=== PATIENT | male | born 1955 | race Two or more races ===

== ENCOUNTER 2017-12-17 17:58 | Inpatient (IN) | payer MEDICAID ==
[~2017-12-17] VITALS: Ht 167.6 cm; Wt 77.6 kg
[2017-12-17 18:18] VITALS: BP 106/70
[2017-12-17] MEDS ORDERED: Isovue-300 100ml vial INJ PRN (18:45)
[2017-12-17 19:29] LABS: HEMATOCRIT 34.4 % (42.0-52.0); HEMOGLOBIN 12.7 G/DL (14.2-18.0); MEAN CORPUSCULAR VOLUME 81 FL (80-99); PLATELET COUNT 71 K/UL (150-450); RED BLOOD COUNT 4.24 M/UL (4.70-6.10); RED CELL DISTRIBUTION WIDTH 11.9 % (11.6-14.8); WHITE BLOOD COUNT 7.1 K/UL (4.8-10.8)
[2017-12-17 19:43] LABS: ANION GAP 9 mmol/L (5-15); BLOOD UREA NITROGEN 19 mg/dL (7-18); CALCIUM 8.2 MG/DL (8.5-10.1); CARBON DIOXIDE 25 MMOL/L (21-32); CHLORIDE 92 MMOL/L (98-107); POTASSIUM 3.9 MMOL/L (3.5-5.1); SODIUM 126 MMOL/L (136-145)
[2017-12-17 19:53] LABS: ALANINE AMINOTRANSFERASE 117 U/L (12-78); ALBUMIN/GLOBULIN RATIO 0.8 (1.0-2.7); ALKALINE PHOSPHATASE 127 U/L (46-116); ASPARTATE AMINO TRANSFERASE 74 U/L (15-37); BILIRUBIN,TOTAL 1.5 MG/DL (0.2-1.0); CKMB < 0.5 NG/ML (0.0-3.6); CREATINE KINASE 124 U/L (26-308)
[2017-12-17 20:03] LABS: BILIRUBIN,DIRECT 0.4 MG/DL (0.0-0.3)
--- NOTE | 2017-12-17 21:26 | Emergency Room Report ---
History of Present Illness General Chief Complaint: Abdominal Pain Source: Patient Present Illness HPI Patient is a 62-year-old male presented after increased abdominal pain the epigastric area. Patient had reported onset of symptoms approximately one week ago. He reports having some episodes of fever and chills. The patient reports having increased epigastric discomfort. He reports having some increased watery stools. He denies any fever. He reports reports having diffuse body aches.The patient recent travel from [place]. Patient had not been having any leg pain or swelling. Patient was noted to have the previous been told he had some abnormalities on his EKG. Allergies: Coded Allergies: No Known Allergies (Unverified , 12/17/17) Patient History Past Medical History: see triage record Reviewed Nursing Documentation: PMH: Agreed; PSxH: Agreed Nursing Documentation-PMH Past Medical History: No History, Except For Hx Hypertension: Yes Review of Systems All Other Systems: negative except mentioned in HPI Physical Exam Vital Signs Date Time Temp Pulse Resp B/P (MAP) Pulse Ox O2 Delivery O2 Flow Rate FiO2 12/17/17 18:08 99.1 90 18 106/70 95 Room Air 99.1 Sp02 EP Interpretation: reviewed, normal General Appearance: normal inspection, well appearing, alert, GCS 15, Chronically Ill Head: atraumatic ENT: normal ENT inspection, hearing grossly normal, normal voice Neck: normal inspection, full range of motion, supple, no bony tend Respiratory: normal inspection, lungs clear, normal breath sounds, no respiratory distress, no retraction, no wheezing Cardiovascular #1: no edema, tachycardia Gastrointestinal: normal inspection, normal bowel sounds, soft, no guarding, no hernia, tenderness Genitourinary: no CVA tenderness Musculoskeletal: normal inspection, back normal, normal range of motion Neurologic: normal inspection, alert, oriented x3, responsive, switchboard inspector III-XII nml as tested, motor strength/tone normal, speech normal Psychiatric: normal inspection, judgement/insight normal, mood/affect normal Skin: normal inspection, normal color, no rash Medical Decision Making Diagnostic Impression: Primary Impression: Abdominal pain Additional Impressions: Hyponatremia Abnormal liver function test LVH (left ventricular hypertrophy) ER Course Patient presented for abdominal pain. Differential diagnoses included ischemic bowel, appendicitis, perforated viscus, abdominal aortic aneurysm, inferior myocardial infarction, viral gastroenteritis Because of complexity of patient's case laboratory testing and imaging studies were ordered. The laboratory testing was notable for hyponatremia as well as elevated BNP. Patient given IV fluids.Patient was started on IV EKG interpreted by me showed normal sinus rhythm with a rate of 89 with left ventricular hypertrophy and anterolateral T-wave inversion. CT abdomen pelvis read by radiology showed no acute abnormality.Dr. Juan Manuel Richards was contacted for inpatient management. Labs Test 12/17/17 19:05 White Blood Count 7.1 K/UL (4.8-10.8) Red Blood Count 4.24 M/UL (4.70-6.10) Hemoglobin 12.7 G/DL (14.2-18.0) Hematocrit 34.4 % (42.0-52.0) Mean Corpuscular Volume 81 FL (80-99) Mean Corpuscular Hemoglobin 29.9 PG (27.0-31.0) Mean Corpuscular Hemoglobin Concent 36.8 G/DL (32.0-36.0) Red Cell Distribution Width 11.9 % (11.6-14.8) Platelet Count 71 K/UL (150-450) Mean Platelet Volume 10.9 FL (6.5-10.1) Neutrophils (%) (Auto) % (45.0-75.0) Lymphocytes (%) (Auto) % (20.0-45.0) Monocytes (%) (Auto) % (1.0-10.0) Eosinophils (%) (Auto) % (0.0-3.0) Basophils (%) (Auto) % (0.0-2.0) Differential Total Cells Counted 100 Neutrophils % (Manual) 85 % (45-75) Lymphocytes % (Manual) 9 % (20-45) Monocytes % (Manual) 6 % (1-10) Eosinophils % (Manual) 0 % (0-3) Basophils % (Manual) 0 % (0-2) Band Neutrophils 0 % (0-8) Reactive Lymphocytes Occasional Platelet Estimate Decreased Giant Platelets Occasional Hypochromasia 1+ Anisocytosis Occasional Sodium Level 126 MMOL/L (136-145) Potassium Level 3.9 MMOL/L (3.5-5.1) Chloride Level 92 MMOL/L (98-107) Carbon Dioxide Level 25 MMOL/L (21-32) Anion Gap 9 mmol/L (5-15) Blood Urea Nitrogen 19 mg/dL (7-18) Creatinine 1.0 MG/DL (0.55-1.30) Estimat Glomerular Filtration Rate > 60 mL/min (>60) Glucose Level 136 MG/DL (74-106) Lactic Acid Level 0.90 mmol/L (0.4-2.0) Calcium Level 8.2 MG/DL (8.5-10.1) Phosphorus Level 2.0 MG/DL (2.5-4.9) Magnesium Level 2.1 MG/DL (1.8-2.4) Total Bilirubin 1.5 MG/DL (0.2-1.0) Direct Bilirubin 0.4 MG/DL (0.0-0.3) Aspartate Amino Transf (AST/SGOT) 74 U/L (15-37) Alanine Aminotransferase (ALT/SGPT) 117 U/L (12-78) Alkaline Phosphatase 127 U/L (46-116) Total Creatine Kinase 124 U/L (26-308) Creatine Kinase MB < 0.5 NG/ML (0.0-3.6) Creatine Kinase MB Relative Index 0.4 Troponin I 0.005 ng/mL (0.000-0.056) Pro-B-Type Natriuretic Peptide 925 pg/mL (0-125) Total Protein 6.6 G/DL (6.4-8.2) Albumin 3.0 G/DL (3.4-5.0) Globulin 3.6 g/dL Albumin/Globulin Ratio 0.8 (1.0-2.7) EKG Diagnostic Results Rate: tachycardiac Rhythm: NSR ST Segments: no acute changes Last Vital Signs Date Time Temp Pulse Resp B/P (MAP) Pulse Ox O2 Delivery O2 Flow Rate FiO2 12/17/17 18:18 99.1 90 18 106/70 95 Room Air 99.1 Status: unchanged Disposition: ADMITTED INPATIENT Condition: Serious Referrals: NON PHYSICIAN (PCP) Ariel Bustillo MD Dec 17, 2017 21:26
[2017-12-17] MEDS ORDERED: D5 1/2NS 1,000 ML IV SCH (21:27)
[2017-12-17] MEDS ORDERED: Miralax 17gm pkt ORAL PRN (21:30)
[2017-12-17] MEDS ORDERED: Promethazine HCl 12.5 MG in NS 55 ML IV PRN (21:30)
[2017-12-17] MEDS ORDERED: LORazepam Inj 2mg/ml 1ml IV PRN (21:30)
[2017-12-17] MEDS ORDERED: Nitroglycerin Subl 0.4mg tab SL PRN (21:30)
[2017-12-17] MEDS ORDERED: Metoclopramide 10mg/2ml Inj IVP PRN (21:30)
[2017-12-17] MEDS ORDERED: Promethazine HCl 25 MG in NS 55 ML IV PRN (21:30)
[2017-12-17] MEDS ORDERED: Mylanta II UD 30ml ORAL PRN (21:30)
[2017-12-17] MEDS ORDERED: Morphine Sulfate 2mg/ml Inj IVP PRN (21:30)
[2017-12-17 22:45] VITALS: BP 151/82
[2017-12-18] VITALS: BP 125/68
[2017-12-18 04:00] VITALS: BP 118/70
[2017-12-18 06:38] LABS: APPEARANCE,URINE CLEAR; BILIRUBIN, URINE NEGATIVE (NEGATIVE); GLUCOSE, URINE (UA) NEGATIVE (NEGATIVE); KETONES,URINE 1+ (NEGATIVE); LEUKOCYTE ESTERASE ,URINE NEGATIVE (NEGATIVE); NITRITE,URINE NEGATIVE (NEGATIVE); PH,URINE 6 (4.5-8.0); PROTEIN,URINE 2+ (NEGATIVE); UROBILINOGEN,URINE NORMAL MG/DL (0.0-1.0)
[2017-12-18 07:05] LABS: COLOR,URINE YELLOW
[2017-12-18] MEDS: D5NS 1,000 ML IV SCH ×2 (07:15→20:35)
[2017-12-18 07:18] LABS: ALANINE AMINOTRANSFERASE 115 U/L (12-78); ALBUMIN 2.6 G/DL (3.4-5.0); ALBUMIN/GLOBULIN RATIO 0.7 (1.0-2.7); ALKALINE PHOSPHATASE 120 U/L (46-116); AMYLASE 70 U/L (25-115); ANION GAP 9 mmol/L (5-15); ASPARTATE AMINO TRANSFERASE 87 U/L (15-37); BILIRUBIN,TOTAL 1.1 MG/DL (0.2-1.0); BLOOD UREA NITROGEN 15 mg/dL (7-18); CALCIUM 7.9 MG/DL (8.5-10.1); CARBON DIOXIDE 21 MMOL/L (21-32); CHLORIDE 96 MMOL/L (98-107); POTASSIUM 3.7 MMOL/L (3.5-5.1); SODIUM 126 MMOL/L (136-145)
[2017-12-18 07:20] LABS: HEMOGLOBIN 12.4 G/DL (14.2-18.0); MEAN CORPUSCULAR VOLUME 82 FL (80-99); PLATELET COUNT 79 K/UL (150-450); RED BLOOD COUNT 4.38 M/UL (4.70-6.10); RED CELL DISTRIBUTION WIDTH 11.8 % (11.6-14.8); WHITE BLOOD COUNT 7.3 K/UL (4.8-10.8)
[2017-12-18 07:25] LABS: BILIRUBIN,DIRECT 0.2 MG/DL (0.0-0.3)
[2017-12-18 08:00] VITALS: BP 131/79
[2017-12-18] MEDS: Pantoprazole Inj IV SCH (08:22)
[2017-12-18] MEDS ORDERED: Heparin 5000 units/ml inj SUBQ SCH (09:00)
--- NOTE | 2017-12-18 10:05 | Diagnostic Imaging Report ---
Indication: Abdominal pain Technique: CT of the abdomen and pelvis utilizing automated exposure control with intravenous contrast. Venous scanning performed. Axial, sagittal and coronal reformats presented. CT dose: Total DLP 825 mGycm; CTDI vol 15.4 mGy Comparison: None Findings: Dependent atelectasis noted in the lung bases. Heart size within normal limits. No pericardial effusion. Likely aortic valvular calcifications partially visualized. No pericardial effusion. Liver normal in size and contour. No focal hepatic mass lesion appreciated on this single phase exam. Portal veins appear patent. Gallbladder is unremarkable in appearance. No CT evident gallstones or pericholecystic inflammatory change. Spleen, adrenal glands and pancreas unremarkable. Kidneys enhance symmetrically. There are small well-circumscribed low-attenuation lesions in the bilateral kidneys, too small to fully characterize but likely simple renal cysts. There is a possible tiny nonobstructing stone in the midpole the left kidney (series 5 image #29). No evidence of hydronephrosis bilaterally. Bladder unremarkable. Prostate is mildly enlarged with central calcifications. There is no free intraperitoneal air or fluid. No evidence of bowel obstruction. Appendix is normal. Abdominal aorta normal in caliber with mild scattered atherosclerotic calcifications. There are mild degenerative changes of the spine. No acute osseous abnormality identified. IMPRESSION: Questionable punctate nonobstructing stone in the midpole the left kidney. No evidence of hydronephrosis bilaterally. Mild prostatomegaly. The CT scanner at [facility] is accredited by the [employer] and the scans are performed using protocols designed to limit radiation exposure to as low as reasonably achievable to attain images of sufficient resolution adequate for diagnostic evaluation.
--- NOTE | 2017-12-18 10:45 | GI Initial Consult Note ---
History of Present Illness General Date patient seen: Dec 18, 2017 Time patient seen: 10:40 Reason for Hospitalization: Abdominal Pain Referring physician: MILTON RIDDLE Reason for Consultation: ABDOMINAL PAIN Present Illness HPI Patient is a 62-year-old male presented after increased abdominal pain the epigastric area. Patient had reported onset of symptoms approximately one week ago. He reports having some episodes of fever and chills. The patient reports having increased epigastric discomfort. He reports having some increased watery stools. He denies any fever. He reports reports having diffuse body aches.The patient recent travel from [place]. Patient had not been having any leg pain or swelling. Patient was noted to have the previous been told he had some abnormalities on his EKG. GI consulted for abdominal pain. Pt seen, awake A&Ox4 diaphoretic currently running fever 102.4 . Pt stated he earlier had severe epigastric pain for 1 week, however the pain has resolved at this time. No tenderness to palpation. Labs reviewed show transaminitis with elevated alkaline phosphatase and mild anemia. The patient has no history of endoscopy or colonoscopy. Abdominal US is currently pending. Med list reviewed/reconciled: Yes Allergies: Coded Allergies: No Known Allergies (Unverified , 12/17/17) Patient History PMH Narrative Past Medical History: see triage record Reviewed Nursing Documentation: PMH: Agreed; PSxH: Agreed Nursing Documentation-PMH Past Medical History: No History, Except For Hx Hypertension: Yes Social History: Denies: smoking, alcohol use, drug use, other Review of Systems All Other Systems: negative except mentioned in HPI Physical Exam Vital Signs Date Time Temp Pulse Resp B/P (MAP) Pulse Ox O2 Delivery O2 Flow Rate FiO2 12/17/17 18:08 99.1 90 18 106/70 95 Room Air 99.1 Sp02 EP Interpretation: reviewed, normal Labs Laboratory Tests Test 12/17/17 19:05 12/18/17 05:50 12/18/17 06:00 White Blood Count 7.1 K/UL (4.8-10.8) 7.3 K/UL (4.8-10.8) Red Blood Count 4.24 M/UL (4.70-6.10) L 4.38 M/UL (4.70-6.10) L Hemoglobin 12.7 G/DL (14.2-18.0) L 12.4 G/DL (14.2-18.0) L Hematocrit 34.4 % (42.0-52.0) L 36.0 % (42.0-52.0) L Mean Corpuscular Volume 81 FL (80-99) 82 FL (80-99) Mean Corpuscular Hemoglobin 29.9 PG (27.0-31.0) 28.4 PG (27.0-31.0) Mean Corpuscular Hemoglobin Concent 36.8 G/DL (32.0-36.0) H 34.5 G/DL (32.0-36.0) Red Cell Distribution Width 11.9 % (11.6-14.8) 11.8 % (11.6-14.8) Platelet Count 71 K/UL (150-450) L 79 K/UL (150-450) L Mean Platelet Volume 10.9 FL (6.5-10.1) H 8.3 FL (6.5-10.1) Neutrophils (%) (Auto) % (45.0-75.0) % (45.0-75.0) Lymphocytes (%) (Auto) % (20.0-45.0) % (20.0-45.0) Monocytes (%) (Auto) % (1.0-10.0) % (1.0-10.0) Eosinophils (%) (Auto) % (0.0-3.0) % (0.0-3.0) Basophils (%) (Auto) % (0.0-2.0) % (0.0-2.0) Differential Total Cells Counted 100 Neutrophils % (Manual) 85 % (45-75) H Pending Lymphocytes % (Manual) 9 % (20-45) L Pending Monocytes % (Manual) 6 % (1-10) Eosinophils % (Manual) 0 % (0-3) Basophils % (Manual) 0 % (0-2) Band Neutrophils 0 % (0-8) Reactive Lymphocytes Occasional Platelet Estimate Decreased L Pending Platelet Morphology Pending Giant Platelets Occasional Hypochromasia 1+ Anisocytosis Occasional Sodium Level 126 MMOL/L (136-145) L 126 MMOL/L (136-145) L Potassium Level 3.9 MMOL/L (3.5-5.1) 3.7 MMOL/L (3.5-5.1) Chloride Level 92 MMOL/L (98-107) L 96 MMOL/L (98-107) L Carbon Dioxide Level 25 MMOL/L (21-32) 21 MMOL/L (21-32) Anion Gap 9 mmol/L (5-15) 9 mmol/L (5-15) Blood Urea Nitrogen 19 mg/dL (7-18) H 15 mg/dL (7-18) Creatinine 1.0 MG/DL (0.55-1.30) 1.0 MG/DL (0.55-1.30) Estimat Glomerular Filtration Rate > 60 mL/min (>60) > 60 mL/min (>60) Glucose Level 136 MG/DL (74-106) H 138 MG/DL (74-106) H Lactic Acid Level 0.90 mmol/L (0.4-2.0) Calcium Level 8.2 MG/DL (8.5-10.1) L 7.9 MG/DL (8.5-10.1) L Phosphorus Level 2.0 MG/DL (2.5-4.9) L Magnesium Level 2.1 MG/DL (1.8-2.4) Total Bilirubin 1.5 MG/DL (0.2-1.0) H 1.1 MG/DL (0.2-1.0) H Direct Bilirubin 0.4 MG/DL (0.0-0.3) H 0.2 MG/DL (0.0-0.3) Aspartate Amino Transf (AST/SGOT) 74 U/L (15-37) H 87 U/L (15-37) H Alanine Aminotransferase (ALT/SGPT) 117 U/L (12-78) H 115 U/L (12-78) H Alkaline Phosphatase 127 U/L (46-116) H 120 U/L (46-116) H Total Creatine Kinase 124 U/L (26-308) Creatine Kinase MB < 0.5 NG/ML (0.0-3.6) Creatine Kinase MB Relative Index 0.4 Troponin I 0.005 ng/mL (0.000-0.056) Pro-B-Type Natriuretic Peptide 925 pg/mL (0-125) H Total Protein 6.6 G/DL (6.4-8.2) 6.1 G/DL (6.4-8.2) L Albumin 3.0 G/DL (3.4-5.0) L 2.6 G/DL (3.4-5.0) L Globulin 3.6 g/dL 3.5 g/dL Albumin/Globulin Ratio 0.8 (1.0-2.7) L 0.7 (1.0-2.7) L Activated Partial Thromboplast Time 37 SEC (23-33) H Amylase Level 70 U/L (25-115) Lipase 299 U/L (73-393) Urine Color Yellow Urine Appearance Clear Urine pH 6 (4.5-8.0) Urine Specific [place] 1.010 (1.005-1.035) Urine Protein 2+ (NEGATIVE) H Urine Glucose (UA) Negative (NEGATIVE) Urine Ketones 1+ (NEGATIVE) H Urine Blood 3+ (NEGATIVE) H Urine Nitrite Negative (NEGATIVE) Urine Bilirubin Negative (NEGATIVE) Urine Urobilinogen Normal MG/DL (0.0-1.0) Urine Leukocyte Esterase Negative (NEGATIVE) Urine RBC 2-4 /HPF (0 - 0) H Urine WBC 0-2 /HPF (0 - 0) Urine Squamous Epithelial Cells Occasional /LPF Urine Bacteria Occasional /HPF (NONE) General Appearance: well appearing, no apparent distress, alert Head: normocephalic EENT: PERRL/EOMI, normal ENT inspection Neck: supple Respiratory: normal breath sounds, no respiratory distress Cardiovascular: normal rate Gastrointestinal: normal inspection, non tender, soft, normal bowel sounds, non -distended Rectal: deferred Genitourinary: deferred Musculoskeletal: normal inspection, back normal Neurologic: normal inspection, alert, oriented x3, responsive Psychiatric: normal inspection, judgement/insight normal, memory normal Skin: normal inspection, normal color, no rash, warm/dry, palpation normal, well hydrated Lymphatic: normal inspection, no adenopathy Current Medications Current Medications Medications (Trade) Dose Ordered Sig/Jasmine Route PRN Reason Start Time Stop Time Status Last Admin Dose Admin Acetaminophen (Tylenol) 650 mg Q4H PRN ORAL fever 12/17/17 21:30 01/16/18 21:29 12/18/17 08:23 Al Hydroxide/Mg Hydroxide (Mylanta II) 30 ml Q6H PRN ORAL dyspepsia 12/17/17 21:30 01/16/18 21:29 Dextrose (Dextrose 50%) STAT PRN IV Hypoglycemia 12/17/17 21:30 01/16/18 21:29 Dextrose/Sodium Chloride 1,000 ml @ 75 mls/hr [id number] IV 12/18/17 07:15 01/17/18 07:14 12/18/17 07:15 Diphenhydramine HCl (Benadryl) 25 mg Q6H PRN ORAL Itching/Pruritis 12/17/17 21:30 01/16/18 21:29 Iopamidol (Isovue-300 100ml) 100 ml NOW PRN INJ Radiology Procedure 12/17/17 18:45 Lorazepam (Ativan 2mg/ml 1ml) 1 mg Q4H PRN IV agitation 12/17/17 21:30 12/24/17 21:29 Metoclopramide HCl (Reglan) 10 mg Q6H PRN IVP SEVERE NAUSEA 12/17/17 21:30 01/16/18 21:29 Morphine Sulfate (Morphine Sulfate) 2 mg Q4H PRN IVP severe Pain (Pain Scale 7-10) 12/17/17 21:30 12/24/17 21:29 Nitroglycerin (Ntg) 0.4 mg Q5M X 3 DOSES PRN SL Prn Chest Pain 12/17/17 21:30 01/16/18 21:29 Ondansetron HCl (Zofran) 4 mg Q6H PRN IVP Nausea & Vomiting 12/17/17 21:30 01/16/18 21:29 12/17/17 23:23 Pantoprazole (Protonix) 40 mg DAILY IV 12/18/17 09:00 01/17/18 08:59 12/18/17 08:22 Polyethylene Glycol (Miralax) 17 gm HSPRN PRN ORAL Constipation 12/17/17 21:30 01/16/18 21:29 Promethazine HCl 12.5 mg/Sodium Chloride 55.5 ml @ 110 mls/hr Q6H PRN IV Refractory N/V 12/17/17 21:30 01/16/18 21:29 Promethazine HCl 25 mg/Sodium Chloride 56 ml @ 110 mls/hr Q6H PRN IV Refractory N/V 12/17/17 21:30 01/16/18 21:29 Temazepam (Restoril) 15 mg HSPRN PRN ORAL Insomnia 12/17/17 21:30 12/24/17 21:29 12/17/17 23:24 GI: Plan Problems: (1) Abdominal pain (2) Hyponatremia (3) Abnormal liver function test (4) Abdominal distention Plan CT AP reviewed. start patient on PPI, will consider endoscopy if patient continues to have persistent pain madrigal culture fu abdominal US anemia work up OB stool r/o GI bleed monitor H&H, prn transfusions bowel regime fu labs, hepatitis panel outpatient colonoscopy Discussed with Dr. Prabhakar. Thank you for this patient referral, we will follow. The patient was seen and examined at bedside and all new and available data was reviewed in the patients chart. I agree with the above findings, impression and plan. (Patient seen earlier today. Signature stamp does not reflect patient encounter time.). - MD Nat[facility] INSURANCE CLAIMS REPRESENTATIVE Dec 18, 2017 10:45
[2017-12-18 12:00] VITALS: BP 119/70
--- NOTE | 2017-12-18 12:38 | Consultation ---
History of Present Illness General Chief Complaint: Abdominal Pain Referring physician: MILTON RIDDLE Reason for Consultation: ABDOMINAL PAIN Present Illness HPI 62-year-old male presented after increased abdominal pain the epigastric area for one week with episodes of fever and chills. The patient reports having increased epigastric discomfort. He reports having some increased watery stools. He was tachycardic and febrile. He is admitted to telemetry for further work up. Allergies: Coded Allergies: No Known Allergies (Unverified , 12/17/17) Patient History Healthcare decision maker SELF Resuscitation status Full Code Advanced Directive on File No Review of Systems Constitutional: Reports: no symptoms, malaise, weakness Gastrointestinal: Reports: abdominal pain, constipation Physical Exam General Appearance: WD/WN Lines, tubes and drains: peripheral HEENT: normocephalic, atraumatic Neck: non-tender, normal alignment Respiratory/Chest: chest wall non-tender, lungs clear Breasts: no masses Cardiovascular/Chest: normal peripheral pulses Abdomen: normal bowel sounds, non tender Genitourinary/Rectal: normal genital exam Extremities: non-tender Last 24 Hour Vital Signs Date Time Temp Pulse Resp B/P (MAP) Pulse Ox O2 Delivery O2 Flow Rate FiO2 12/18/17 09:00 Room Air 12/18/17 08:53 102.4 12/18/17 08:23 101.8 12/18/17 08:00 115 12/18/17 04:00 98.8 99 25 118/70 (86) 96 98.8 12/18/17 04:00 91 12/18/17 01:46 100.2 24 97 100.2 12/18/17 00:00 101.0 122 27 125/68 (87) 96 101.0 12/18/17 00:00 122 12/17/17 23:24 101.6 12/17/17 22:46 Room Air 12/17/17 22:45 214.9 115 25 126/73 95 Room Air 12/17/17 22:45 101.6 121 25 151/82 (105) 95 101.6 12/17/17 22:40 122 12/17/17 18:18 99.1 90 18 106/70 95 Room Air 99.1 12/17/17 18:08 99.1 90 18 106/70 95 Room Air 99.1 Intake and Output 12/17/17 12/18/17 19:00 07:00 Intake Total 421 ml Output Total 0 ml Balance 0 ml 421 ml Intake IV Total 421 ml Output Urine Total 0 ml Laboratory Tests Test 12/17/17 19:05 12/18/17 05:50 12/18/17 06:00 12/18/17 11:30 White Blood Count 7.1 K/UL (4.8-10.8) 7.3 K/UL (4.8-10.8) Red Blood Count 4.24 M/UL (4.70-6.10) L 4.38 M/UL (4.70-6.10) L Hemoglobin 12.7 G/DL (14.2-18.0) L 12.4 G/DL (14.2-18.0) L Hematocrit 34.4 % (42.0-52.0) L 36.0 % (42.0-52.0) L Mean Corpuscular Volume 81 FL (80-99) 82 FL (80-99) Mean Corpuscular Hemoglobin 29.9 PG (27.0-31.0) 28.4 PG (27.0-31.0) Mean Corpuscular Hemoglobin Concent 36.8 G/DL (32.0-36.0) H 34.5 G/DL (32.0-36.0) Red Cell Distribution Width 11.9 % (11.6-14.8) 11.8 % (11.6-14.8) Platelet Count 71 K/UL (150-450) L 79 K/UL (150-450) L Mean Platelet Volume 10.9 FL (6.5-10.1) H 8.3 FL (6.5-10.1) Neutrophils (%) (Auto) % (45.0-75.0) % (45.0-75.0) Lymphocytes (%) (Auto) % (20.0-45.0) % (20.0-45.0) Monocytes (%) (Auto) % (1.0-10.0) % (1.0-10.0) Eosinophils (%) (Auto) % (0.0-3.0) % (0.0-3.0) Basophils (%) (Auto) % (0.0-2.0) % (0.0-2.0) Differential Total Cells Counted 100 Neutrophils % (Manual) 85 % (45-75) H Pending Lymphocytes % (Manual) 9 % (20-45) L Pending Monocytes % (Manual) 6 % (1-10) Eosinophils % (Manual) 0 % (0-3) Basophils % (Manual) 0 % (0-2) Band Neutrophils 0 % (0-8) Reactive Lymphocytes Occasional Platelet Estimate Decreased L Pending Platelet Morphology Pending Giant Platelets Occasional Hypochromasia 1+ Anisocytosis Occasional Sodium Level 126 MMOL/L (136-145) L 126 MMOL/L (136-145) L Potassium Level 3.9 MMOL/L (3.5-5.1) 3.7 MMOL/L (3.5-5.1) Chloride Level 92 MMOL/L (98-107) L 96 MMOL/L (98-107) L Carbon Dioxide Level 25 MMOL/L (21-32) 21 MMOL/L (21-32) Anion Gap 9 mmol/L (5-15) 9 mmol/L (5-15) Blood Urea Nitrogen 19 mg/dL (7-18) H 15 mg/dL (7-18) Creatinine 1.0 MG/DL (0.55-1.30) 1.0 MG/DL (0.55-1.30) Estimat Glomerular Filtration Rate > 60 mL/min (>60) > 60 mL/min (>60) Glucose Level 136 MG/DL (74-106) H 138 MG/DL (74-106) H Lactic Acid Level 0.90 mmol/L (0.4-2.0) Calcium Level 8.2 MG/DL (8.5-10.1) L 7.9 MG/DL (8.5-10.1) L Phosphorus Level 2.0 MG/DL (2.5-4.9) L Magnesium Level 2.1 MG/DL (1.8-2.4) Total Bilirubin 1.5 MG/DL (0.2-1.0) H 1.1 MG/DL (0.2-1.0) H Direct Bilirubin 0.4 MG/DL (0.0-0.3) H 0.2 MG/DL (0.0-0.3) Aspartate Amino Transf (AST/SGOT) 74 U/L (15-37) H 87 U/L (15-37) H Alanine Aminotransferase (ALT/SGPT) 117 U/L (12-78) H 115 U/L (12-78) H Alkaline Phosphatase 127 U/L (46-116) H 120 U/L (46-116) H Total Creatine Kinase 124 U/L (26-308) Creatine Kinase MB < 0.5 NG/ML (0.0-3.6) Creatine Kinase MB Relative Index 0.4 Troponin I 0.005 ng/mL (0.000-0.056) Pro-B-Type Natriuretic Peptide 925 pg/mL (0-125) H Total Protein 6.6 G/DL (6.4-8.2) 6.1 G/DL (6.4-8.2) L Albumin 3.0 G/DL (3.4-5.0) L 2.6 G/DL (3.4-5.0) L Globulin 3.6 g/dL 3.5 g/dL Albumin/Globulin Ratio 0.8 (1.0-2.7) L 0.7 (1.0-2.7) L Activated Partial Thromboplast Time 37 SEC (23-33) H Amylase Level 70 U/L (25-115) Lipase 299 U/L (73-393) Urine Color Yellow Urine Appearance Clear Urine pH 6 (4.5-8.0) Urine Specific [place] 1.010 (1.005-1.035) Urine Protein 2+ (NEGATIVE) H Urine Glucose (UA) Negative (NEGATIVE) Urine Ketones 1+ (NEGATIVE) H Urine Blood 3+ (NEGATIVE) H Urine Nitrite Negative (NEGATIVE) Urine Bilirubin Negative (NEGATIVE) Urine Urobilinogen Normal MG/DL (0.0-1.0) Urine Leukocyte Esterase Negative (NEGATIVE) Urine RBC 2-4 /HPF (0 - 0) H Urine WBC 0-2 /HPF (0 - 0) Urine Squamous Epithelial Cells Occasional /LPF Urine Bacteria Occasional /HPF (NONE) Hepatitis A IgM Antibody Pending Hepatitis B Surface Antigen Pending Hepatitis B Core IgM Antibody Pending Hepatitis C Antibody Pending Height (Feet): 5 Height (Inches): 6.00 Weight (Pounds): 176 Medications Current Medications Medications (Trade) Dose Ordered Sig/Jasmine Route PRN Reason Start Time Stop Time Status Last Admin Dose Admin Acetaminophen (Tylenol) 650 mg Q4H PRN ORAL fever 12/17/17 21:30 01/16/18 21:29 12/18/17 08:23 Al Hydroxide/Mg Hydroxide (Mylanta II) 30 ml Q6H PRN ORAL dyspepsia 12/17/17 21:30 01/16/18 21:29 Dextrose (Dextrose 50%) STAT PRN IV Hypoglycemia 12/17/17 21:30 01/16/18 21:29 Dextrose/Sodium Chloride 1,000 ml @ 75 mls/hr [id number] IV 12/18/17 07:15 01/17/18 07:14 12/18/17 07:15 Diphenhydramine HCl (Benadryl) 25 mg Q6H PRN ORAL Itching/Pruritis 12/17/17 21:30 01/16/18 21:29 Iopamidol (Isovue-300 100ml) 100 ml NOW PRN INJ Radiology Procedure 12/17/17 18:45 Lorazepam (Ativan 2mg/ml 1ml) 1 mg Q4H PRN IV agitation 12/17/17 21:30 12/24/17 21:29 Metoclopramide HCl (Reglan) 10 mg Q6H PRN IVP SEVERE NAUSEA 12/17/17 21:30 01/16/18 21:29 Morphine Sulfate (Morphine Sulfate) 2 mg Q4H PRN IVP severe Pain (Pain Scale 7-10) 12/17/17 21:30 12/24/17 21:29 Nitroglycerin (Ntg) 0.4 mg Q5M X 3 DOSES PRN SL Prn Chest Pain 12/17/17 21:30 01/16/18 21:29 Ondansetron HCl (Zofran) 4 mg Q6H PRN IVP Nausea & Vomiting 12/17/17 21:30 01/16/18 21:29 12/17/17 23:23 Pantoprazole (Protonix) 40 mg DAILY IV 12/18/17 09:00 01/17/18 08:59 12/18/17 08:22 Polyethylene Glycol (Miralax) 17 gm HSPRN PRN ORAL Constipation 12/17/17 21:30 01/16/18 21:29 Promethazine HCl 12.5 mg/Sodium Chloride 55.5 ml @ 110 mls/hr Q6H PRN IV Refractory N/V 12/17/17 21:30 01/16/18 21:29 Promethazine HCl 25 mg/Sodium Chloride 56 ml @ 110 mls/hr Q6H PRN IV Refractory N/V 12/17/17 21:30 01/16/18 21:29 Temazepam (Restoril) 15 mg HSPRN PRN ORAL Insomnia 12/17/17 21:30 12/24/17 21:29 12/17/17 23:24 Assessment/Plan Problem List: (1) Sepsis ICD Codes: A41.9 - Sepsis, unspecified organism SNOMED: 25361495 (2) Intractable diarrhea ICD Codes: R19.7 - Diarrhea, unspecified SNOMED: 040886125 (3) Abdominal pain ICD Codes: R10.9 - Unspecified abdominal pain SNOMED: 94050458 (4) Hyponatremia ICD Codes: E87.1 - Hypo-osmolality and hyponatremia SNOMED: 91405646 Assessment/Plan NPO iv fluids IV abx GI and ID evaluation check electrolytes. Kaushal Goodwin MD Dec 18, 2017 12:38
--- NOTE | 2017-12-18 13:21 | Consultation ---
History of Present Illness General Date patient seen: Dec 18, 2017 Chief Complaint: Abdominal Pain Referring physician: MILTON RIDDLE Reason for Consultation: ABDOMINAL PAIN Present Illness HPI Mr. Knight is a 62 yo male with PMHx of HTN who presented to the ED yesterday with nausea, vomiting, diarrhea and fever. The patient reports that he just returned from a week long trip to [place] where he started to feel sick to his stomach after eating ham and eggs. Other people eat the same food and did not get sick. He has had nausea, intermittent vomiting and diarrhea (watery and about 2-3 / day. No blood). He also has had intermittent fever and chills for the last week. He says that he has associated intermittent BENAVIDES, and his fingers and shins have been hurting as well. Currently he feel a little nauseous and has a headache but no vomiting, had one BM today loose watery but has no hand or sun pain. He a fever of 102 this am. He has no pets, Denies Bug bites, contact with feral cats, dog, opossums, rats and he has no pets of his own. He does not hike or [place]. Lives in [place]. Has not traveled recently other then to [place]. No He of rheumatological problems or cancer. PMHx HTN HDL PSHx None SocHx Retired form construction work - No chemical exposures that he knows of Used to drink EtOH but not heavily Now no E/T/D FamHx No DM Allergies: Coded Allergies: No Known Allergies (Unverified , 12/17/17) Patient History Healthcare decision maker SELF Resuscitation status Full Code Advanced Directive on File No Review of Systems All Other Systems: negative except mentioned in HPI Physical Exam Last 24 Hour Vital Signs Date Time Temp Pulse Resp B/P (MAP) Pulse Ox O2 Delivery O2 Flow Rate FiO2 12/18/17 09:00 Room Air 12/18/17 08:53 102.4 12/18/17 08:23 101.8 12/18/17 08:00 115 12/18/17 04:00 98.8 99 25 118/70 (86) 96 98.8 12/18/17 04:00 91 12/18/17 01:46 100.2 24 97 100.2 12/18/17 00:00 101.0 122 27 125/68 (87) 96 101.0 12/18/17 00:00 122 12/17/17 23:24 101.6 12/17/17 22:46 Room Air 12/17/17 22:45 214.9 115 25 126/73 95 Room Air 12/17/17 22:45 101.6 121 25 151/82 (105) 95 101.6 12/17/17 22:40 122 12/17/17 18:18 99.1 90 18 106/70 95 Room Air 99.1 12/17/17 18:08 99.1 90 18 106/70 95 Room Air 99.1 Intake and Output 12/17/17 12/18/17 19:00 07:00 Intake Total 421 ml Output Total 0 ml Balance 0 ml 421 ml Intake IV Total 421 ml Output Urine Total 0 ml Laboratory Tests Test 12/17/17 19:05 12/18/17 05:50 12/18/17 06:00 12/18/17 11:30 White Blood Count 7.1 K/UL (4.8-10.8) 7.3 K/UL (4.8-10.8) Red Blood Count 4.24 M/UL (4.70-6.10) L 4.38 M/UL (4.70-6.10) L Hemoglobin 12.7 G/DL (14.2-18.0) L 12.4 G/DL (14.2-18.0) L Hematocrit 34.4 % (42.0-52.0) L 36.0 % (42.0-52.0) L Mean Corpuscular Volume 81 FL (80-99) 82 FL (80-99) Mean Corpuscular Hemoglobin 29.9 PG (27.0-31.0) 28.4 PG (27.0-31.0) Mean Corpuscular Hemoglobin Concent 36.8 G/DL (32.0-36.0) H 34.5 G/DL (32.0-36.0) Red Cell Distribution Width 11.9 % (11.6-14.8) 11.8 % (11.6-14.8) Platelet Count 71 K/UL (150-450) L 79 K/UL (150-450) L Mean Platelet Volume 10.9 FL (6.5-10.1) H 8.3 FL (6.5-10.1) Neutrophils (%) (Auto) % (45.0-75.0) % (45.0-75.0) Lymphocytes (%) (Auto) % (20.0-45.0) % (20.0-45.0) Monocytes (%) (Auto) % (1.0-10.0) % (1.0-10.0) Eosinophils (%) (Auto) % (0.0-3.0) % (0.0-3.0) Basophils (%) (Auto) % (0.0-2.0) % (0.0-2.0) Differential Total Cells Counted 100 Neutrophils % (Manual) 85 % (45-75) H Pending Lymphocytes % (Manual) 9 % (20-45) L Pending Monocytes % (Manual) 6 % (1-10) Eosinophils % (Manual) 0 % (0-3) Basophils % (Manual) 0 % (0-2) Band Neutrophils 0 % (0-8) Reactive Lymphocytes Occasional Platelet Estimate Decreased L Pending Platelet Morphology Pending Giant Platelets Occasional Hypochromasia 1+ Anisocytosis Occasional Sodium Level 126 MMOL/L (136-145) L 126 MMOL/L (136-145) L Potassium Level 3.9 MMOL/L (3.5-5.1) 3.7 MMOL/L (3.5-5.1) Chloride Level 92 MMOL/L (98-107) L 96 MMOL/L (98-107) L Carbon Dioxide Level 25 MMOL/L (21-32) 21 MMOL/L (21-32) Anion Gap 9 mmol/L (5-15) 9 mmol/L (5-15) Blood Urea Nitrogen 19 mg/dL (7-18) H 15 mg/dL (7-18) Creatinine 1.0 MG/DL (0.55-1.30) 1.0 MG/DL (0.55-1.30) Estimat Glomerular Filtration Rate > 60 mL/min (>60) > 60 mL/min (>60) Glucose Level 136 MG/DL (74-106) H 138 MG/DL (74-106) H Lactic Acid Level 0.90 mmol/L (0.4-2.0) Calcium Level 8.2 MG/DL (8.5-10.1) L 7.9 MG/DL (8.5-10.1) L Phosphorus Level 2.0 MG/DL (2.5-4.9) L Magnesium Level 2.1 MG/DL (1.8-2.4) Total Bilirubin 1.5 MG/DL (0.2-1.0) H 1.1 MG/DL (0.2-1.0) H Direct Bilirubin 0.4 MG/DL (0.0-0.3) H 0.2 MG/DL (0.0-0.3) Aspartate Amino Transf (AST/SGOT) 74 U/L (15-37) H 87 U/L (15-37) H Alanine Aminotransferase (ALT/SGPT) 117 U/L (12-78) H 115 U/L (12-78) H Alkaline Phosphatase 127 U/L (46-116) H 120 U/L (46-116) H Total Creatine Kinase 124 U/L (26-308) Creatine Kinase MB < 0.5 NG/ML (0.0-3.6) Creatine Kinase MB Relative Index 0.4 Troponin I 0.005 ng/mL (0.000-0.056) Pro-B-Type Natriuretic Peptide 925 pg/mL (0-125) H Total Protein 6.6 G/DL (6.4-8.2) 6.1 G/DL (6.4-8.2) L Albumin 3.0 G/DL (3.4-5.0) L 2.6 G/DL (3.4-5.0) L Globulin 3.6 g/dL 3.5 g/dL Albumin/Globulin Ratio 0.8 (1.0-2.7) L 0.7 (1.0-2.7) L Activated Partial Thromboplast Time 37 SEC (23-33) H Amylase Level 70 U/L (25-115) Lipase 299 U/L (73-393) Urine Color Yellow Urine Appearance Clear Urine pH 6 (4.5-8.0) Urine Specific [place] 1.010 (1.005-1.035) Urine Protein 2+ (NEGATIVE) H Urine Glucose (UA) Negative (NEGATIVE) Urine Ketones 1+ (NEGATIVE) H Urine Blood 3+ (NEGATIVE) H Urine Nitrite Negative (NEGATIVE) Urine Bilirubin Negative (NEGATIVE) Urine Urobilinogen Normal MG/DL (0.0-1.0) Urine Leukocyte Esterase Negative (NEGATIVE) Urine RBC 2-4 /HPF (0 - 0) H Urine WBC 0-2 /HPF (0 - 0) Urine Squamous Epithelial Cells Occasional /LPF Urine Bacteria Occasional /HPF (NONE) Hepatitis A IgM Antibody Pending Hepatitis B Surface Antigen Pending Hepatitis B Core IgM Antibody Pending Hepatitis C Antibody Pending Height (Feet): 5 Height (Inches): 6.00 Weight (Pounds): 176 Medications Current Medications Medications (Trade) Dose Ordered Sig/Jasmine Route PRN Reason Start Time Stop Time Status Last Admin Dose Admin Acetaminophen (Tylenol) 650 mg Q4H PRN ORAL fever 12/17/17 21:30 01/16/18 21:29 12/18/17 08:23 Al Hydroxide/Mg Hydroxide (Mylanta II) 30 ml Q6H PRN ORAL dyspepsia 12/17/17 21:30 01/16/18 21:29 Dextrose (Dextrose 50%) STAT PRN IV Hypoglycemia 12/17/17 21:30 01/16/18 21:29 Dextrose/Sodium Chloride 1,000 ml @ 75 mls/hr [id number] IV 12/18/17 07:15 01/17/18 07:14 12/18/17 07:15 Diphenhydramine HCl (Benadryl) 25 mg Q6H PRN ORAL Itching/Pruritis 12/17/17 21:30 01/16/18 21:29 Iopamidol (Isovue-300 100ml) 100 ml NOW PRN INJ Radiology Procedure 12/17/17 18:45 Lorazepam (Ativan 2mg/ml 1ml) 1 mg Q4H PRN IV agitation 12/17/17 21:30 12/24/17 21:29 Metoclopramide HCl (Reglan) 10 mg Q6H PRN IVP SEVERE NAUSEA 12/17/17 21:30 01/16/18 21:29 Morphine Sulfate (Morphine Sulfate) 2 mg Q4H PRN IVP severe Pain (Pain Scale 7-10) 12/17/17 21:30 12/24/17 21:29 Nitroglycerin (Ntg) 0.4 mg Q5M X 3 DOSES PRN SL Prn Chest Pain 12/17/17 21:30 01/16/18 21:29 Ondansetron HCl (Zofran) 4 mg Q6H PRN IVP Nausea & Vomiting 12/17/17 21:30 01/16/18 21:29 12/17/17 23:23 Pantoprazole (Protonix) 40 mg DAILY IV 12/18/17 09:00 01/17/18 08:59 12/18/17 08:22 Piperacillin Sod/ Tazobactam Sod 3.375 gm/Dextrose 110 ml @ 27.5 mls/hr EVERY 8 HOURS IVPB 12/18/17 14:00 12/23/17 13:59 Polyethylene Glycol (Miralax) 17 gm HSPRN PRN ORAL Constipation 12/17/17 21:30 01/16/18 21:29 Promethazine HCl 12.5 mg/Sodium Chloride 55.5 ml @ 110 mls/hr Q6H PRN IV Refractory N/V 12/17/17 21:30 01/16/18 21:29 Promethazine HCl 25 mg/Sodium Chloride 56 ml @ 110 mls/hr Q6H PRN IV Refractory N/V 12/17/17 21:30 01/16/18 21:29 Temazepam (Restoril) 15 mg HSPRN PRN ORAL Insomnia 12/17/17 21:30 12/24/17 21:29 12/17/17 23:24 Objective Narrative Gen: NAD, well appearing, alert HEENT: NCAT, MMM, EOMI, PERRL, No Oral lesion, no scleral icterus NECK: full range of motion, supple, no meningismus, No LAD, No JVD LUNGS: CTAB, No W/C, No Accessory muscle use CARDS: RRR, S1, S2, No M/R/G, ABD: Soft, NT, ND, No R/G, + BS, No HSM, No Masses Ext: C/C/E, Pulses 2+ B/L (DP, Rad), No Supraclavicular LN, No Axillary LN, No hand welling or joint swelling. No lower ext pain or swelling. NEURO: A/O x 4, Strength and Sensation Grossly intact PSYCH: mood/affect normal SKIN: warm/dry, No rashes, Assessment/Plan Assessment/Plan 62 yo male with PMHx of HTN who presented to the ED yesterday with nausea, vomiting, diarrhea and fever. Fever - Unclear source - Possible infectious diarrhea but DDx in broad - GI, Rheumatologic, Cancer and more Will work up infectious diarrhea No Leukocytosis No GIB HTN HDL PLAN: - Start Ciprofloxacin 500 BID - Get stool cultures and c. diff - Monitor temps and WBCs - Consider CA and Rheum work up - f/u US - f/u GI recs Thank you for this consult we will continue to follow with you. Silverio Burton MD Dec 18, 2017 13:21
[2017-12-18] MEDS: Piperacillin/Tazobactam 3.375 GM in D5W 110 ML IVPB SCH ×2 (13:27→21:55)
[2017-12-18 14:05] LABS: APPEARANCE,URINE SLIGHTLY CLOUDY; BILIRUBIN, URINE NEGATIVE (NEGATIVE); GLUCOSE, URINE (UA) NEGATIVE (NEGATIVE); KETONES,URINE 1+ (NEGATIVE); LEUKOCYTE ESTERASE ,URINE NEGATIVE (NEGATIVE); NITRITE,URINE NEGATIVE (NEGATIVE); PH,URINE 6 (4.5-8.0); PROTEIN,URINE 2+ (NEGATIVE); UROBILINOGEN,URINE NORMAL MG/DL (0.0-1.0)
[2017-12-18 14:09] LABS: COLOR,URINE YELLOW
--- NOTE | 2017-12-18 14:32 | Diagnostic Imaging Report ---
Indication: Shortness of breath Technique: XRAY Chest 1v Comparison: None Findings: Heart size likely within the upper limits for normal. Mediastinal contours are sharp. There is no focal airspace consolidation, pleural effusion or pneumothorax. No acute osseous abnormality. Impression: No radiographic evidence of acute cardiopulmonary disease.
--- NOTE | 2017-12-18 14:56 | Diagnostic Imaging Report ---
Indication: Abdominal pain Technique: Multiplanar grayscale ultrasound evaluation of the abdomen with duplex Doppler evaluation. Comparison: Correlation made to concurrent CT of the abdomen and pelvis Findings: Pancreas obscured by overlying bowel gas. Imaged portions of the pancreatic head grossly unremarkable. Liver is normal in size. Hepatic contour is smooth. No focal hepatic mass lesion is appreciated sonographically. Imaged hepatic veins are patent. Main portal vein is patent with normal direction of flow. Gallbladder is without evidence of cholelithiasis, gallbladder sludge, gallbladder wall thickening or pericholecystic fluid. Sonographic Moon sign reported as negative. There is no intrahepatic or extrahepatic biliary duct dilatation. The common bile duct measures 3 to 4 mm. Kidneys demonstrate normal echogenicity bilaterally. There are small bilateral simple appearing cysts. A subcentimeter echogenic shadowing focus in the upper pole of the left kidney is noted. No evidence of hydronephrosis bilaterally. Spleen is enlarged, measuring 14.8 cm in length. Imaged portions of the abdominal aorta and inferior vena cava are normal in caliber. There is no ascites. Impression: * Punctate nonobstructing left renal stone. No evidence of hydronephrosis bilaterally. * Simple appearing small bilateral renal cysts. * Splenomegaly with the spleen measuring up to 14 cm in length.
[2017-12-18 16:00] VITALS: BP 111/64
--- NOTE | 2017-12-18 18:55 | History & Physical ---
History and Physical History & Physicial Dictated for Int Med-Dr Richards no. [id number]. Coleman Macedo MD Dec 18, 2017 18:55
[2017-12-18 20:00] VITALS: BP 156/75
[2017-12-18] MEDS: Ciprofloxacin 500mg tab ORAL SCH (20:33)
--- NOTE | 2017-12-18 22:45 | History and Physical Report ---
DATE OF ADMISSION: 12/17/2017 CHIEF COMPLAINT: The patient is a 62-year-old male, who presents with chief complaint of nausea and vomiting. HISTORY OF PRESENT ILLNESS: Began one week prior to admission. The patient recently traveled to [place]. The patient began to experience nausea and vomiting. The patient was unable to tolerate liquids or solids. The patient presented to [facility] emergency room. The patient is admitted for epigastric pain to rule out acute cholecystitis. PAST MEDICAL HISTORY: Significant for 1. Hypertension. 2. Hypercholesterolemia. PAST SURGICAL HISTORY: The patient denies. CURRENT MEDICATIONS: Noted. The patient does not know his current medications. ALLERGIES: No known drug allergies. SOCIAL HISTORY: The patient is and lives with his nieces. The patient denies tobacco or alcohol use. REVIEW OF SYSTEMS: CONSTITUTIONAL: The patient denies weight loss or weight gain. The patient denies fevers or chills. HEENT: The patient denies ear or throat pain. The patient denies headache. CARDIOVASCULAR: The patient denies palpitations or chest pain. CHEST: The patient denies wheeze or shortness of breath. ABDOMEN: The patient complains of nausea and vomiting as above. The patient does have epigastric pain. NEUROLOGIC: The patient denies seizures or generalized weakness. GENITOURINARY: The patient denies dysuria or increased frequency of urination. PHYSICAL EXAMINATION: GENERAL: The patient is well-developed and well-nourished male, in no apparent distress. VITAL SIGNS: Temperature 101.8 degrees, respirations 22, pulse 102 to 104, and blood pressure 119/70. HEENT: Eyes, pupils equal and responsive to light and accommodation. Extraocular movements are intact. NECK: Supple without lymphadenopathy. CHEST: Lungs are clear to auscultation bilaterally without wheezes or rales. CARDIOVASCULAR: Regular rate. S1 and S2 are normal without murmurs, rubs, or gallops. ABDOMEN: Soft and tender to palpation epigastric, otherwise without rebound or guarding. NEUROLOGIC: Cranial nerves II through XII are grossly intact without focal deficits. Motor strength is 5/5 bilaterally. Deep tendon reflexes are 2+ plantar. LABORATORY AND DIAGNOSTIC DATA: WBC 7.1, hemoglobin 12.7, hematocrit 34.4, and platelets 71,000. Sodium 126, potassium 3.9, chloride 92, CO2 of 25, BUN 19, creatinine 1.0, and glucose 136. Total bilirubin elevated at 1.5. Direct bilirubin elevated at 0.4. AST elevated at 74, ALT elevated at 117, and alkaline phosphatase elevated at 127. An abdominal ultrasound reveals a nonobstructing left renal stone, otherwise without cholelithiasis. A CT of the abdomen showed nonobstructing punctate stone in the mid pole of the left kidney. ASSESSMENT: This is a 62-year-old male 1. Epigastric pain. 2. Nausea and vomiting. 3. Fever. 4. Elevated liver function tests. 5. Hyponatremia. 6. History of hypertension. TREATMENT: 1. Epigastric pain/nausea/vomiting. A Gastroenterology consultation has been obtained with Dr. Jordin Prabhakar. We will follow recommendations of Gastroenterology. 2. Fever. An Infectious Disease consultation has been obtained with . The patient has been placed empirically on Zosyn and ciprofloxacin. 3. Elevated liver function tests, etiology is unknown. A hepatitis panel is pending. 4. Hyponatremia, this is probably secondary to hyperemesis. The patient is currently receiving normal saline. 5. Hypertension. The patient is currently hypotensive. Coleman Macedo M.D. DR: RAFAT JOB#: [id number] CC:
[2017-12-19] VITALS: BP 126/69
[2017-12-19 04:00] VITALS: BP 108/70
[2017-12-19] MEDS: Piperacillin/Tazobactam 3.375 GM in D5W 110 ML IVPB SCH ×3 (05:30→21:44)
[2017-12-19 07:21] LABS: HEMATOCRIT 35.5 % (42.0-52.0); HEMOGLOBIN 12.4 G/DL (14.2-18.0); MEAN CORPUSCULAR VOLUME 82 FL (80-99); PLATELET COUNT 85 K/UL (150-450); RED BLOOD COUNT 4.32 M/UL (4.70-6.10); WHITE BLOOD COUNT 6.3 K/UL (4.8-10.8)
[2017-12-19 07:26] LABS: ALANINE AMINOTRANSFERASE 142 U/L (12-78); ALBUMIN 2.7 G/DL (3.4-5.0); ALBUMIN/GLOBULIN RATIO 0.7 (1.0-2.7); ALKALINE PHOSPHATASE 139 U/L (46-116); ANION GAP 7 mmol/L (5-15); ASPARTATE AMINO TRANSFERASE 103 U/L (15-37); BILIRUBIN,TOTAL 1.4 MG/DL (0.2-1.0); BLOOD UREA NITROGEN 12 mg/dL (7-18); CARBON DIOXIDE 27 MMOL/L (21-32); CHLORIDE 95 MMOL/L (98-107); POTASSIUM 3.4 MMOL/L (3.5-5.1); SODIUM 129 MMOL/L (136-145)
[2017-12-19 07:27] LABS: BILIRUBIN,DIRECT 0.5 MG/DL (0.0-0.3)
[2017-12-19 07:36] LABS: % IRON SATURATION 12 % (15-50); IRON 18 ug/dL (50-175); TOTAL IRON BINDING CAPACITY 148 ug/dL (250-450)
--- NOTE | 2017-12-19 07:51 | Infectious Diseases Prog Note ---
Assessment/Plan Assessment/Plan 62 yo male with PMHx of HTN who presented to the ED yesterday with nausea, vomiting, diarrhea and fever. Fever - Unclear source - Possible infectious diarrhea but DDx in broad - GI, Rheumatologic, Cancer and more Will work up infectious diarrhea No Leukocytosis No GIB HTN HDL PLAN: - Continue Ciprofloxacin 500 BID - f/u stool cultures and c. diff - Check HIV, Peripheral blood smear and Inflammatory markers - Monitor temps and WBCs - f/u GI recs and work up We will continue to follow with you. Subjective Allergies: Coded Allergies: No Known Allergies (Unverified , 12/17/17) Subjective Patient still with fevers. Still with mild nausea no vomiting, diarrhea or abdominal pain Objective Vital Signs Last 24 Hour Vital Signs Date Time Temp Pulse Resp B/P (MAP) Pulse Ox O2 Delivery O2 Flow Rate FiO2 12/19/17 04:00 99.4 96 19 108/70 (83) 96 99.4 12/19/17 04:00 90 12/19/17 00:56 100.4 12/19/17 00:26 100.4 12/19/17 00:00 97 12/19/17 00:00 100.4 96 18 126/69 (88) 98 100.4 12/18/17 21:00 Room Air 12/18/17 20:35 102.6 12/18/17 20:00 102.8 115 19 156/75 (102) 98 102.8 12/18/17 20:00 113 12/18/17 16:00 69 12/18/17 16:00 101.8 104 22 111/64 (80) 96 101.8 12/18/17 14:00 98 12/18/17 13:25 101.8 12/18/17 12:00 101.8 102 22 119/70 (86) 95 101.8 12/18/17 12:00 104 12/18/17 09:00 Room Air 12/18/17 08:23 101.8 12/18/17 08:00 102.0 118 20 131/79 (96) 96 102.0 12/18/17 08:00 115 Height (Feet): 5 Height (Inches): 6.00 Weight (Pounds): 176 Objective Gen: NAD, well appearing, alert HEENT: NCAT, MMM, EOMI, LUNGS: CTAB, No W/C, No Accessory muscle use CARDS: RRR, S1, S2, No M/R/G, ABD: Soft, NT, ND, No R/G, + BS, No HSM, No Masses NEURO: A/O x 4, Strength and Sensation Grossly intact Microbiology Date/Time Source Procedure Growth Status 12/17/17 19:05 Blood Blood Culture - Preliminary NO GROWTH AFTER 24 HOURS Resulted 12/17/17 19:05 Blood Blood Culture - Preliminary NO GROWTH AFTER 24 HOURS Resulted Laboratory Tests Test 12/18/17 11:30 12/18/17 13:35 12/18/17 17:39 12/19/17 06:32 Hepatitis A IgM Antibody Pending Hepatitis B Surface Antigen Pending Hepatitis B Core IgM Antibody Pending Hepatitis C Antibody Pending Urine Color Yellow Urine Appearance Slightly cloudy Urine pH 6 (4.5-8.0) Urine Specific [place] 1.015 (1.005-1.035) Urine Protein 2+ (NEGATIVE) H Urine Glucose (UA) Negative (NEGATIVE) Urine Ketones 1+ (NEGATIVE) H Urine Blood 3+ (NEGATIVE) H Urine Nitrite Negative (NEGATIVE) Urine Bilirubin Negative (NEGATIVE) Urine Urobilinogen Normal MG/DL (0.0-1.0) Urine Leukocyte Esterase Negative (NEGATIVE) Urine RBC 2-4 /HPF (0 - 0) H Urine WBC 2-4 /HPF (0 - 0) Urine Squamous Epithelial Cells Occasional /LPF Urine Bacteria Few /HPF (NONE) Urine Fine Granular Casts 0-2 /LPF (NONE) H Stool Occult Blood Pending White Blood Count 6.3 K/UL (4.8-10.8) Red Blood Count 4.32 M/UL (4.70-6.10) L Hemoglobin 12.4 G/DL (14.2-18.0) L Hematocrit 35.5 % (42.0-52.0) L Mean Corpuscular Volume 82 FL (80-99) Mean Corpuscular Hemoglobin 28.6 PG (27.0-31.0) Mean Corpuscular Hemoglobin Concent 34.8 G/DL (32.0-36.0) Red Cell Distribution Width 12.0 % (11.6-14.8) Platelet Count 85 K/UL (150-450) L Mean Platelet Volume 7.8 FL (6.5-10.1) Neutrophils (%) (Auto) % (45.0-75.0) Lymphocytes (%) (Auto) % (20.0-45.0) Monocytes (%) (Auto) % (1.0-10.0) Eosinophils (%) (Auto) % (0.0-3.0) Basophils (%) (Auto) % (0.0-2.0) Neutrophils % (Manual) Pending Lymphocytes % (Manual) Pending Platelet Estimate Pending Platelet Morphology Pending Reticulocyte Count Pending Prothrombin Time 11.0 SEC (9.30-11.50) Prothromb Time International Ratio 1.0 (0.9-1.1) Activated Partial Thromboplast Time 39 SEC (23-33) H Sodium Level 129 MMOL/L (136-145) L Potassium Level 3.4 MMOL/L (3.5-5.1) L Chloride Level 95 MMOL/L (98-107) L Carbon Dioxide Level 27 MMOL/L (21-32) Anion Gap 7 mmol/L (5-15) Blood Urea Nitrogen 12 mg/dL (7-18) Creatinine 1.0 MG/DL (0.55-1.30) Estimat Glomerular Filtration Rate > 60 mL/min (>60) Glucose Level 143 MG/DL (74-106) H Calcium Level 8.0 MG/DL (8.5-10.1) L Iron Level 18 ug/dL (50-175) L Total Iron Binding Capacity 148 ug/dL (250-450) L Percent Iron Saturation 12 % (15-50) L Unsaturated Iron Binding 130 ug/dL (112-346) Ferritin Pending Total Bilirubin 1.4 MG/DL (0.2-1.0) H Direct Bilirubin 0.5 MG/DL (0.0-0.3) H Aspartate Amino Transf (AST/SGOT) 103 U/L (15-37) H Alanine Aminotransferase (ALT/SGPT) 142 U/L (12-78) H Alkaline Phosphatase 139 U/L (46-116) H Total Protein 6.5 G/DL (6.4-8.2) Albumin 2.7 G/DL (3.4-5.0) L Globulin 3.8 g/dL Albumin/Globulin Ratio 0.7 (1.0-2.7) L Carcinoembryonic Antigen Pending Vitamin B12 Level 1703 PG/ML (193-986) H Folate 18.0 NG/ML (8.6-58.9) Thyroid Stimulating Hormone (TSH) 0.656 uiU/mL (0.358-3.740) Free Thyroxine 1.26 NG/DL (0.76-1.46) Current Medications Medications (Trade) Dose Ordered Sig/Jasmine Route PRN Reason Start Time Stop Time Status Last Admin Dose Admin Acetaminophen (Tylenol) 650 mg Q4H PRN ORAL fever 12/17/17 21:30 01/16/18 21:29 12/19/17 00:26 Al Hydroxide/Mg Hydroxide (Mylanta II) 30 ml Q6H PRN ORAL dyspepsia 12/17/17 21:30 01/16/18 21:29 Ciprofloxacin (Cipro 500mg tab) 500 mg EVERY 12 HOURS ORAL 12/18/17 21:00 12/25/17 20:59 12/18/17 20:33 Dextrose (Dextrose 50%) 25 ml PRN IV Hypoglycemia 12/18/17 13:30 01/17/18 13:29 Dextrose (Dextrose 50%) 50 ml PRN IV hypoglycemia 12/18/17 13:30 01/17/18 13:29 Dextrose/Sodium Chloride 1,000 ml @ 75 mls/hr [id number] IV 12/18/17 07:15 01/17/18 07:14 12/18/17 20:35 Diphenhydramine HCl (Benadryl) 25 mg Q6H PRN ORAL Itching/Pruritis 12/17/17 21:30 01/16/18 21:29 Iopamidol (Isovue-300 100ml) 100 ml NOW PRN INJ Radiology Procedure 12/17/17 18:45 Lorazepam (Ativan 2mg/ml 1ml) 1 mg Q4H PRN IV agitation 12/17/17 21:30 12/24/17 21:29 Metoclopramide HCl (Reglan) 10 mg Q6H PRN IVP SEVERE NAUSEA 12/17/17 21:30 01/16/18 21:29 Morphine Sulfate (Morphine Sulfate) 2 mg Q4H PRN IVP severe Pain (Pain Scale 7-10) 12/17/17 21:30 12/24/17 21:29 Nitroglycerin (Ntg) 0.4 mg Q5M X 3 DOSES PRN SL Prn Chest Pain 12/17/17 21:30 01/16/18 21:29 Ondansetron HCl (Zofran) 4 mg Q6H PRN IVP Nausea & Vomiting 12/17/17 21:30 01/16/18 21:29 12/17/17 23:23 Pantoprazole (Protonix) 40 mg DAILY IV 12/18/17 09:00 01/17/18 08:59 12/18/17 08:22 Piperacillin Sod/ Tazobactam Sod 3.375 gm/Dextrose 110 ml @ 27.5 mls/hr EVERY 8 HOURS IVPB 12/18/17 14:00 12/23/17 13:59 12/19/17 05:30 Polyethylene Glycol (Miralax) 17 gm HSPRN PRN ORAL Constipation 12/17/17 21:30 01/16/18 21:29 Promethazine HCl 12.5 mg/Sodium Chloride 55.5 ml @ 110 mls/hr Q6H PRN IV Refractory N/V 12/17/17 21:30 01/16/18 21:29 Promethazine HCl 25 mg/Sodium Chloride 56 ml @ 110 mls/hr Q6H PRN IV Refractory N/V 12/17/17 21:30 01/16/18 21:29 Temazepam (Restoril) 15 mg HSPRN PRN ORAL Insomnia 12/17/17 21:30 12/24/17 21:29 12/17/17 23:24 Silverio Burton MD Dec 19, 2017 07:51
[2017-12-19 07:56] LABS: FERRITIN > 2000 NG/ML (8-388)
[2017-12-19 08:00] VITALS: BP 128/73
[2017-12-19] MEDS: Ciprofloxacin 500mg tab ORAL SCH ×2 (08:43→21:43)
[2017-12-19] MEDS: Pantoprazole Inj IV SCH (08:44)
[2017-12-19] MEDS: D5NS 1,000 ML IV SCH ×2 (09:44→15:38)
--- NOTE | 2017-12-19 10:45 | Pulmonology Progress Note ---
Assessment/Plan Problems: (1) Sepsis (2) Intractable diarrhea (3) Abdominal pain (4) Hyponatremia (5) Abnormal liver function test Assessment/Plan f/u blood cultures f/u Na f/u ID recommendations continue empiric treatment. med/surg Subjective ROS Limited/Unobtainable: No Constitutional: Reports: no symptoms HEENT: Repors: no symptoms Respiratory: Reports: no symptoms Allergies: Coded Allergies: No Known Allergies (Unverified , 12/17/17) Objective Last 24 Hour Vital Signs Date Time Temp Pulse Resp B/P (MAP) Pulse Ox O2 Delivery O2 Flow Rate FiO2 12/19/17 09:13 101.3 12/19/17 08:43 102.4 12/19/17 08:10 Room Air 12/19/17 08:00 102.4 103 22 128/73 (91) 96 102.4 12/19/17 07:40 105 12/19/17 04:00 99.4 96 19 108/70 (83) 96 99.4 12/19/17 04:00 90 12/19/17 00:26 100.4 12/19/17 00:00 97 12/19/17 00:00 100.4 96 18 126/69 (88) 98 100.4 12/18/17 21:00 Room Air 12/18/17 20:35 102.6 12/18/17 20:00 102.8 115 19 156/75 (102) 98 102.8 12/18/17 20:00 113 12/18/17 16:00 69 12/18/17 16:00 101.8 104 22 111/64 (80) 96 101.8 12/18/17 14:00 98 12/18/17 13:25 101.8 12/18/17 12:00 101.8 102 22 119/70 (86) 95 101.8 12/18/17 12:00 104 Intake and Output 12/18/17 12/19/17 19:00 07:00 Intake Total 240 ml 1053.0 ml Balance 240 ml 1053.0 ml Intake Oral 240 ml 120 ml IV Total 933.0 ml # Voids 3 4 # Bowel Movements 1 General Appearance: WD/WN HEENT: PERRL Respiratory/Chest: chest wall non-tender, lungs clear Cardiovascular: normal peripheral pulses, normal rate Abdomen: normal bowel sounds, soft, non tender Genitourinary: normal external genitalia Skin: no rash Microbiology Date/Time Source Procedure Growth Status 12/17/17 19:05 Blood Blood Culture - Preliminary NO GROWTH AFTER 24 HOURS Resulted 12/17/17 19:05 Blood Blood Culture - Preliminary NO GROWTH AFTER 24 HOURS Resulted 12/18/17 17:39 Stool Clostridium difficile Toxin Assay - Final Complete 12/18/17 13:35 Urine,Clean Catch Urine Culture - Preliminary Resulted Laboratory Tests 12/18/17 11:30: Hepatitis A IgM Antibody Negative, Hepatitis B Surface Antigen Negative, Hepatitis B Core IgM Antibody Negative, Hepatitis C Antibody <0.1 12/18/17 13:35: Urine Color Yellow, Urine Appearance Slightly cloudy, Urine pH 6, Urine Specific [place] 1.015, Urine Protein 2+H, Urine Glucose (UA) Negative, Urine Ketones 1+H, Urine Blood 3+H, Urine Nitrite Negative, Urine Bilirubin Negative, Urine Urobilinogen Normal, Urine Leukocyte Esterase Negative, Urine RBC 2-4H, Urine WBC 2-4, Urine Squamous Epithelial Cells Occasional, Urine Bacteria Few, Urine Fine Granular Casts 0-2H 12/18/17 17:39: Stool Occult Blood Negative 12/19/17 06:32: White Blood Count 6.3, Red Blood Count 4.32L, Hemoglobin 12.4L, Hematocrit 35.5L , Mean Corpuscular Volume 82, Mean Corpuscular Hemoglobin 28.6, Mean Corpuscular Hemoglobin Concent 34.8, Red Cell Distribution Width 12.0, Platelet Count 85L, Mean Platelet Volume 7.8, Neutrophils (%) (Auto) , Lymphocytes (%) ( Auto) , Monocytes (%) (Auto) , Eosinophils (%) (Auto) , Basophils (%) (Auto) , Neutrophils % (Manual) [Pending], Lymphocytes % (Manual) [Pending], Platelet Estimate [Pending], Platelet Morphology [Pending], Erythrocyte Sedimentation Rate [Pending], Reticulocyte Count [Pending], Prothrombin Time 11.0, Prothromb Time International Ratio 1.0, Activated Partial Thromboplast Time 39H, Sodium Level 129L, Potassium Level 3.4L, Chloride Level 95L, Carbon Dioxide Level 27, Anion Gap 7, Blood Urea Nitrogen 12, Creatinine 1.0, Estimat Glomerular Filtration Rate > 60, Glucose Level 143H, Calcium Level 8.0L, Iron Level 18L, Total Iron Binding Capacity 148L, Percent Iron Saturation 12L, Unsaturated Iron Binding 130, Ferritin > 2000H, Total Bilirubin 1.4H, Direct Bilirubin 0.5H, Aspartate Amino Transf (AST/SGOT) 103H, Alanine Aminotransferase (ALT/SGPT) 142H , Alkaline Phosphatase 139H, C-Reactive Protein, Quantitative 13.2H, Total Protein 6.5, Albumin 2.7L, Globulin 3.8, Albumin/Globulin Ratio 0.7L, Carcinoembryonic Antigen [Pending], Vitamin B12 Level 1703H, Folate 18.0, Thyroid Stimulating Hormone (TSH) 0.656, Free Thyroxine 1.26, HIV (1&2) Antibody Rapid [Pending] Current Medications Medications (Trade) Dose Ordered Sig/Jasmine Route PRN Reason Start Time Stop Time Status Last Admin Dose Admin Acetaminophen (Tylenol) 650 mg Q4H PRN ORAL fever 12/17/17 21:30 01/16/18 21:29 12/19/17 08:43 Al Hydroxide/Mg Hydroxide (Mylanta II) 30 ml Q6H PRN ORAL dyspepsia 12/17/17 21:30 01/16/18 21:29 Ciprofloxacin (Cipro 500mg tab) 500 mg EVERY 12 HOURS ORAL 12/18/17 21:00 12/25/17 20:59 12/19/17 08:43 Dextrose (Dextrose 50%) 25 ml PRN IV Hypoglycemia 12/18/17 13:30 01/17/18 13:29 Dextrose (Dextrose 50%) 50 ml PRN IV hypoglycemia 12/18/17 13:30 01/17/18 13:29 Dextrose/Sodium Chloride 1,000 ml @ 75 mls/hr [id number] IV 12/18/17 07:15 01/17/18 07:14 12/19/17 09:44 Diphenhydramine HCl (Benadryl) 25 mg Q6H PRN ORAL Itching/Pruritis 12/17/17 21:30 01/16/18 21:29 Iopamidol (Isovue-300 100ml) 100 ml NOW PRN INJ Radiology Procedure 12/17/17 18:45 Lorazepam (Ativan 2mg/ml 1ml) 1 mg Q4H PRN IV agitation 12/17/17 21:30 12/24/17 21:29 Metoclopramide HCl (Reglan) 10 mg Q6H PRN IVP SEVERE NAUSEA 12/17/17 21:30 01/16/18 21:29 Morphine Sulfate (Morphine Sulfate) 2 mg Q4H PRN IVP severe Pain (Pain Scale 7-10) 12/17/17 21:30 12/24/17 21:29 Nitroglycerin (Ntg) 0.4 mg Q5M X 3 DOSES PRN SL Prn Chest Pain 12/17/17 21:30 01/16/18 21:29 Ondansetron HCl (Zofran) 4 mg Q6H PRN IVP Nausea & Vomiting 12/17/17 21:30 01/16/18 21:29 12/17/17 23:23 Pantoprazole (Protonix) 40 mg DAILY IV 12/18/17 09:00 01/17/18 08:59 12/19/17 08:44 Piperacillin Sod/ Tazobactam Sod 3.375 gm/Dextrose 110 ml @ 27.5 mls/hr EVERY 8 HOURS IVPB 12/18/17 14:00 12/23/17 13:59 12/19/17 05:30 Polyethylene Glycol (Miralax) 17 gm HSPRN PRN ORAL Constipation 12/17/17 21:30 01/16/18 21:29 Promethazine HCl 25 mg/Sodium Chloride 56 ml @ 110 mls/hr Q6H PRN IV Refractory N/V 12/17/17 21:30 01/16/18 21:29 Temazepam (Restoril) 15 mg HSPRN PRN ORAL Insomnia 12/17/17 21:30 12/24/17 21:29 12/17/17 23:24 Kaushal Goodwin MD Dec 19, 2017 10:45
[2017-12-19 12:00] VITALS: BP 109/79
--- NOTE | 2017-12-19 13:29 | GI Progress Note ---
Assessment/Plan Problems: (1) Abdominal pain ICD Codes: R10.9 - Unspecified abdominal pain SNOMED: 18221093 (2) Intractable diarrhea ICD Codes: R19.7 - Diarrhea, unspecified SNOMED: 629712348 (3) Abdominal distention ICD Codes: R14.0 - Abdominal distension (gaseous) SNOMED: 56256410 Status: stable Status Narrative Discussed with Dr. Prabhakar. Assessment/Plan CT AP reviewed. transaminitis >> unknown etiology at this time >> will order for autoimmune - abdominal US reviewed, unremarkable. - hepatitis panel negative - pt denies ETOH use cdiff negative OB stool negative madrigal culture negative adv diet cont PPI monitor H&H, prn transfusions bowel regime fu labs, RAMIRO, AMA, SMA, IgG outpatient colonoscopy The patient was seen and examined at bedside and all new and available data was reviewed in the patients chart. I agree with the above findings, impression and plan. (Patient seen earlier today. Signature stamp does not reflect patient encounter time.). - Jordin Prabhakar MD Subjective Gastrointestinal/Abdominal: Reports: no symptoms Subjective epigastric pain resolved Objective Last 24 Hour Vital Signs Date Time Temp Pulse Resp B/P (MAP) Pulse Ox O2 Delivery O2 Flow Rate FiO2 12/19/17 12:00 98.4 88 20 109/79 (89) 95 98.4 12/19/17 11:21 91 12/19/17 09:13 101.3 12/19/17 08:43 102.4 12/19/17 08:10 Room Air 12/19/17 08:00 102.4 103 22 128/73 (91) 96 102.4 12/19/17 07:40 105 12/19/17 04:00 99.4 96 19 108/70 (83) 96 99.4 12/19/17 04:00 90 12/19/17 00:26 100.4 12/19/17 00:00 97 12/19/17 00:00 100.4 96 18 126/69 (88) 98 100.4 12/18/17 21:00 Room Air 12/18/17 20:35 102.6 12/18/17 20:00 102.8 115 19 156/75 (102) 98 102.8 12/18/17 20:00 113 12/18/17 16:00 69 12/18/17 16:00 101.8 104 22 111/64 (80) 96 101.8 12/18/17 14:00 98 Intake and Output 12/18/17 12/19/17 19:00 07:00 Intake Total 240 ml 1053.0 ml Balance 240 ml 1053.0 ml Intake Oral 240 ml 120 ml IV Total 933.0 ml # Voids 3 4 # Bowel Movements 1 Laboratory Tests Test 12/18/17 13:35 12/18/17 17:39 12/19/17 06:32 Urine Color Yellow Urine Appearance Slightly cloudy Urine pH 6 (4.5-8.0) Urine Specific [place] 1.015 (1.005-1.035) Urine Protein 2+ (NEGATIVE) H Urine Glucose (UA) Negative (NEGATIVE) Urine Ketones 1+ (NEGATIVE) H Urine Blood 3+ (NEGATIVE) H Urine Nitrite Negative (NEGATIVE) Urine Bilirubin Negative (NEGATIVE) Urine Urobilinogen Normal MG/DL (0.0-1.0) Urine Leukocyte Esterase Negative (NEGATIVE) Urine RBC 2-4 /HPF (0 - 0) H Urine WBC 2-4 /HPF (0 - 0) Urine Squamous Epithelial Cells Occasional /LPF Urine Bacteria Few /HPF (NONE) Urine Fine Granular Casts 0-2 /LPF (NONE) H Stool Occult Blood Negative (NEGATIVE) White Blood Count 6.3 K/UL (4.8-10.8) Red Blood Count 4.32 M/UL (4.70-6.10) L Hemoglobin 12.4 G/DL (14.2-18.0) L Hematocrit 35.5 % (42.0-52.0) L Mean Corpuscular Volume 82 FL (80-99) Mean Corpuscular Hemoglobin 28.6 PG (27.0-31.0) Mean Corpuscular Hemoglobin Concent 34.8 G/DL (32.0-36.0) Red Cell Distribution Width 12.0 % (11.6-14.8) Platelet Count 85 K/UL (150-450) L Mean Platelet Volume 7.8 FL (6.5-10.1) Neutrophils (%) (Auto) % (45.0-75.0) Lymphocytes (%) (Auto) % (20.0-45.0) Monocytes (%) (Auto) % (1.0-10.0) Eosinophils (%) (Auto) % (0.0-3.0) Basophils (%) (Auto) % (0.0-2.0) Differential Total Cells Counted 100 Neutrophils % (Manual) 82 % (45-75) H Lymphocytes % (Manual) 6 % (20-45) L Monocytes % (Manual) 12 % (1-10) H Eosinophils % (Manual) 0 % (0-3) Basophils % (Manual) 0 % (0-2) Band Neutrophils 0 % (0-8) Platelet Estimate Decreased L Platelet Morphology Normal Red Blood Cell Morphology Normal Erythrocyte Sedimentation Rate 95 MM/HR (0-20) H Reticulocyte Count Pending Prothrombin Time 11.0 SEC (9.30-11.50) Prothromb Time International Ratio 1.0 (0.9-1.1) Activated Partial Thromboplast Time 39 SEC (23-33) H Sodium Level 129 MMOL/L (136-145) L Potassium Level 3.4 MMOL/L (3.5-5.1) L Chloride Level 95 MMOL/L (98-107) L Carbon Dioxide Level 27 MMOL/L (21-32) Anion Gap 7 mmol/L (5-15) Blood Urea Nitrogen 12 mg/dL (7-18) Creatinine 1.0 MG/DL (0.55-1.30) Estimat Glomerular Filtration Rate > 60 mL/min (>60) Glucose Level 143 MG/DL (74-106) H Calcium Level 8.0 MG/DL (8.5-10.1) L Iron Level 18 ug/dL (50-175) L Total Iron Binding Capacity 148 ug/dL (250-450) L Percent Iron Saturation 12 % (15-50) L Unsaturated Iron Binding 130 ug/dL (112-346) Ferritin > 2000 NG/ML (8-388) H Total Bilirubin 1.4 MG/DL (0.2-1.0) H Direct Bilirubin 0.5 MG/DL (0.0-0.3) H Aspartate Amino Transf (AST/SGOT) 103 U/L (15-37) H Alanine Aminotransferase (ALT/SGPT) 142 U/L (12-78) H Alkaline Phosphatase 139 U/L (46-116) H C-Reactive Protein, Quantitative 13.2 mg/dL (0.00-0.90) H Total Protein 6.5 G/DL (6.4-8.2) Albumin 2.7 G/DL (3.4-5.0) L Globulin 3.8 g/dL Albumin/Globulin Ratio 0.7 (1.0-2.7) L Carcinoembryonic Antigen Pending Vitamin B12 Level 1703 PG/ML (193-986) H Folate 18.0 NG/ML (8.6-58.9) Thyroid Stimulating Hormone (TSH) 0.656 uiU/mL (0.358-3.740) Free Thyroxine 1.26 NG/DL (0.76-1.46) HIV (1&2) Antibody Rapid Negative (NEGATIVE) Microbiology Date/Time Source Procedure Growth Status 12/18/17 17:39 Stool Clostridium difficile Toxin Assay - Final Complete 12/18/17 13:35 Urine,Clean Catch Urine Culture - Preliminary Resulted Height (Feet): 5 Height (Inches): 6.00 Weight (Pounds): 176 General Appearance: WD/WN, no apparent distress, alert Cardiovascular: normal rate Respiratory/Chest: normal breath sounds, no respiratory distress Abdominal Exam: normal bowel sounds, non tender, soft Extremities: normal range of motion, non-tender Dulce Luz NP Dec 19, 2017 13:29
--- NOTE | 2017-12-19 14:24 | Cardiology Report ---
APPROVED REPORT EKG Measurement Heart [id number] Normal sinus rhythm Prolonged QT Abnormal ECG
[2017-12-19] MEDS ORDERED: Nitroglycerin Subl 0.4mg tab SL PRN (14:30)
[2017-12-19] MEDS ORDERED: Mylanta II UD 30ml ORAL PRN (15:30)
[2017-12-19] MEDS ORDERED: Morphine Sulfate 2mg/ml Inj IVP PRN (15:30)
[2017-12-19] MEDS ORDERED: LORazepam Inj 2mg/ml 1ml IV PRN (15:30)
[2017-12-19] MEDS ORDERED: Metoclopramide 10mg/2ml Inj IVP PRN (15:30)
[2017-12-19] MEDS ORDERED: Promethazine HCl 25 MG in NS 55 ML IV PRN (15:30)
[2017-12-19 16:00] VITALS: BP 121/75
--- NOTE | 2017-12-19 18:27 | Internal Med Progress Note ---
Subjective Date of Service: Dec 19, 2017 Physician Name Coleman Macedo Attending Physician Juan Manuel Richards MD Current Medications Medications (Trade) Dose Ordered Sig/Jasmine Route PRN Reason Start Time Stop Time Status Last Admin Dose Admin Acetaminophen (Tylenol) 650 mg Q4H PRN ORAL fever 12/19/17 15:30 01/16/18 15:29 12/19/17 17:21 Al Hydroxide/Mg Hydroxide (Mylanta II) 30 ml Q6H PRN ORAL dyspepsia 12/19/17 15:30 01/16/18 21:29 Ciprofloxacin (Cipro 500mg tab) 500 mg EVERY 12 HOURS ORAL 12/19/17 21:00 12/25/17 20:59 Dextrose (Dextrose 50%) 25 ml PRN IV Hypoglycemia 12/19/17 14:30 01/17/18 13:29 Dextrose (Dextrose 50%) 50 ml PRN IV hypoglycemia 12/19/17 14:30 01/17/18 13:29 Dextrose/Sodium Chloride 1,000 ml @ 75 mls/hr [id number] IV 12/19/17 14:30 01/17/18 07:14 12/19/17 15:38 Diphenhydramine HCl (Benadryl) 25 mg Q6H PRN ORAL Itching/Pruritis 12/19/17 15:30 01/16/18 21:29 Lorazepam (Ativan 2mg/ml 1ml) 1 mg Q4H PRN IV agitation 12/19/17 15:30 12/24/17 15:29 Metoclopramide HCl (Reglan) 10 mg Q6H PRN IVP SEVERE NAUSEA 12/19/17 15:30 01/16/18 21:29 Morphine Sulfate (Morphine Sulfate) 2 mg Q4H PRN IVP severe Pain (Pain Scale 7-10) 12/19/17 15:30 12/24/17 15:29 Nitroglycerin (Ntg) 0.4 mg Q5M X 3 DOSES PRN SL Prn Chest Pain 12/19/17 14:30 01/16/18 21:29 Ondansetron HCl (Zofran) 4 mg Q6H PRN IVP Nausea & Vomiting 12/19/17 15:30 01/16/18 21:29 Pantoprazole (Protonix) 40 mg ACBREAKFAST ORAL 12/20/17 06:30 01/19/18 06:29 Piperacillin Sod/ Tazobactam Sod 3.375 gm/Dextrose 110 ml @ 27.5 mls/hr EVERY 8 HOURS IVPB 12/19/17 22:00 12/24/17 21:59 Polyethylene Glycol (Miralax) 17 gm HSPRN PRN ORAL Constipation 12/19/17 21:30 01/16/18 21:29 Promethazine HCl 25 mg/Sodium Chloride 56 ml @ 110 mls/hr Q6H PRN IV Refractory N/V 12/19/17 15:30 01/16/18 21:29 Temazepam (Restoril) 15 mg HSPRN PRN ORAL Insomnia 12/19/17 21:30 12/24/17 21:29 Allergies: Coded Allergies: No Known Allergies (Unverified , 12/17/17) ROS Limited/Unobtainable: No Constitutional: Reports: no symptoms HEENT: Reports: no symptoms Cardiovascular: Reports: no symptoms Respiratory: Reports: no symptoms Gastrointestinal/Abdominal: Reports: nausea, vomiting Genitourinary: Reports: no symptoms Neurologic/Psychiatric: Reports: no symptoms Subjective 62 YO M admitted with nausea, vomiting and diarrhea. Now abdominal pain and elevated liver enz. Cover for Int Ronny-Dr Richards. Objective Last Vital Signs Date Time Temp Pulse Resp B/P (MAP) Pulse Ox O2 Delivery O2 Flow Rate FiO2 12/19/17 17:51 102.5 12/19/17 16:00 91 20 121/75 (90) 95 12/19/17 08:10 Room Air Laboratory Tests Test 12/19/17 06:32 White Blood Count 6.3 K/UL (4.8-10.8) Red Blood Count 4.32 M/UL (4.70-6.10) L Hemoglobin 12.4 G/DL (14.2-18.0) L Hematocrit 35.5 % (42.0-52.0) L Mean Corpuscular Volume 82 FL (80-99) Mean Corpuscular Hemoglobin 28.6 PG (27.0-31.0) Mean Corpuscular Hemoglobin Concent 34.8 G/DL (32.0-36.0) Red Cell Distribution Width 12.0 % (11.6-14.8) Platelet Count 85 K/UL (150-450) L Mean Platelet Volume 7.8 FL (6.5-10.1) Neutrophils (%) (Auto) % (45.0-75.0) Lymphocytes (%) (Auto) % (20.0-45.0) Monocytes (%) (Auto) % (1.0-10.0) Eosinophils (%) (Auto) % (0.0-3.0) Basophils (%) (Auto) % (0.0-2.0) Differential Total Cells Counted 100 Neutrophils % (Manual) 82 % (45-75) H Lymphocytes % (Manual) 6 % (20-45) L Monocytes % (Manual) 12 % (1-10) H Eosinophils % (Manual) 0 % (0-3) Basophils % (Manual) 0 % (0-2) Band Neutrophils 0 % (0-8) Platelet Estimate Decreased L Platelet Morphology Normal Red Blood Cell Morphology Normal Erythrocyte Sedimentation Rate 95 MM/HR (0-20) H Reticulocyte Count 1.1 % (0.0-2.0) Prothrombin Time 11.0 SEC (9.30-11.50) Prothromb Time International Ratio 1.0 (0.9-1.1) Activated Partial Thromboplast Time 39 SEC (23-33) H Sodium Level 129 MMOL/L (136-145) L Potassium Level 3.4 MMOL/L (3.5-5.1) L Chloride Level 95 MMOL/L (98-107) L Carbon Dioxide Level 27 MMOL/L (21-32) Anion Gap 7 mmol/L (5-15) Blood Urea Nitrogen 12 mg/dL (7-18) Creatinine 1.0 MG/DL (0.55-1.30) Estimat Glomerular Filtration Rate > 60 mL/min (>60) Glucose Level 143 MG/DL (74-106) H Calcium Level 8.0 MG/DL (8.5-10.1) L Iron Level 18 ug/dL (50-175) L Total Iron Binding Capacity 148 ug/dL (250-450) L Percent Iron Saturation 12 % (15-50) L Unsaturated Iron Binding 130 ug/dL (112-346) Ferritin > 2000 NG/ML (8-388) H Total Bilirubin 1.4 MG/DL (0.2-1.0) H Direct Bilirubin 0.5 MG/DL (0.0-0.3) H Aspartate Amino Transf (AST/SGOT) 103 U/L (15-37) H Alanine Aminotransferase (ALT/SGPT) 142 U/L (12-78) H Alkaline Phosphatase 139 U/L (46-116) H C-Reactive Protein, Quantitative 13.2 mg/dL (0.00-0.90) H Total Protein 6.5 G/DL (6.4-8.2) Albumin 2.7 G/DL (3.4-5.0) L Globulin 3.8 g/dL Albumin/Globulin Ratio 0.7 (1.0-2.7) L Carcinoembryonic Antigen Pending Vitamin B12 Level 1703 PG/ML (193-986) H Folate 18.0 NG/ML (8.6-58.9) Thyroid Stimulating Hormone (TSH) 0.656 uiU/mL (0.358-3.740) Free Thyroxine 1.26 NG/DL (0.76-1.46) HIV (1&2) Antibody Rapid Negative (NEGATIVE) Microbiology Date/Time Source Procedure Growth Status 12/17/17 19:05 Blood Blood Culture - Preliminary NO GROWTH AFTER 24 HOURS Resulted 12/17/17 19:05 Blood Blood Culture - Preliminary NO GROWTH AFTER 24 HOURS Resulted 12/18/17 17:39 Stool Clostridium difficile Toxin Assay - Final Complete 12/18/17 13:35 Urine,Clean Catch Urine Culture - Preliminary Resulted Intake and Output 12/18/17 12/19/17 19:00 07:00 Intake Total 240 ml 1053.0 ml Balance 240 ml 1053.0 ml Intake Oral 240 ml 120 ml IV Total 933.0 ml # Voids 3 4 # Bowel Movements 1 Objective GENERAL: The patient is well-developed and well-nourished male, in no apparent distress. HEENT: Eyes, pupils equal and responsive to light and accommodation. Extraocular movements are intact. NECK: Supple without lymphadenopathy. CHEST: Lungs are clear to auscultation bilaterally without wheezes or rales. CARDIOVASCULAR: Regular rate. S1 and S2 are normal without murmurs, rubs, or gallops. ABDOMEN: Soft and tender to palpation epigastric, otherwise without rebound or guarding. NEUROLOGIC: Cranial nerves II through XII are grossly intact without focal deficits. Motor strength is 5/5 bilaterally. Deep tendon reflexes are 2+ plantar. Assessment/Plan Problem List: (1) Nausea & vomiting (2) Diarrhea Assessment & Plan: See GI note. Stool studies neg so far (3) Hypertension (4) Abnormal liver function test Assessment & Plan: See GI note. Workup neg so far (5) Hyponatremia Assessment & Plan: Resolving on IV Fluids Status: progressing Coleman Macedo MD Dec 19, 2017 18:27
[2017-12-19] MEDS ORDERED: Isovue-300 100ml vial INJ PRN (18:45)
[2017-12-19 20:00] VITALS: BP 120/67
[2017-12-19] MEDS ORDERED: Miralax 17gm pkt ORAL PRN (21:30)
[2017-12-20] VITALS: BP 121/77
[2017-12-20 04:00] VITALS: BP 119/71
[2017-12-20] MEDS: D5NS 1,000 ML IV SCH (04:04)
[2017-12-20] MEDS: Piperacillin/Tazobactam 3.375 GM in D5W 110 ML IVPB SCH (05:55)
[2017-12-20 06:09] LABS: HEMATOCRIT 32.1 % (42.0-52.0); MEAN CORPUSCULAR VOLUME 82 FL (80-99); PLATELET COUNT 86 K/UL (150-450); RED BLOOD COUNT 3.92 M/UL (4.70-6.10); RED CELL DISTRIBUTION WIDTH 11.9 % (11.6-14.8); WHITE BLOOD COUNT 6.1 K/UL (4.8-10.8)
[2017-12-20 07:01] LABS: ALANINE AMINOTRANSFERASE 113 U/L (12-78); ALBUMIN 2.3 G/DL (3.4-5.0); ALBUMIN/GLOBULIN RATIO 0.7 (1.0-2.7); ALKALINE PHOSPHATASE 125 U/L (46-116); ANION GAP 7 mmol/L (5-15); ASPARTATE AMINO TRANSFERASE 78 U/L (15-37); BILIRUBIN,TOTAL 1.1 MG/DL (0.2-1.0); BLOOD UREA NITROGEN 13 mg/dL (7-18); CALCIUM 7.9 MG/DL (8.5-10.1); CARBON DIOXIDE 25 MMOL/L (21-32); CHLORIDE 99 MMOL/L (98-107); POTASSIUM 3.4 MMOL/L (3.5-5.1); SODIUM 131 MMOL/L (136-145)
[2017-12-20 07:25] LABS: BILIRUBIN,DIRECT 0.5 MG/DL (0.0-0.3)
[2017-12-20 08:00] VITALS: BP 123/70
[2017-12-20] MEDS: Ciprofloxacin 500mg tab ORAL SCH ×2 (09:19→20:52)
--- NOTE | 2017-12-20 11:27 | Infectious Diseases Prog Note ---
Assessment/Plan Assessment/Plan 62 yo male with PMHx of HTN who presented to the ED yesterday with nausea, vomiting, diarrhea and fever. Fever - Unclear source - Possible viral infectious diarrhea but DDx in broad - GI, Rheumatologic, Cancer Will work up infectious diarrhea negative to date CRP 13, ESR 95 Negative Hep A/B/C, Neg HIV, RAMIRO pending No Leukocytosis No GIB HTN HDL PLAN: - Continue Ciprofloxacin #2 - 12/20 - SP Zosyn - f/u Rheum work up - Monitor temps and WBCs - f/u GI recs and work up We will continue to follow with you. Subjective Allergies: Coded Allergies: No Known Allergies (Unverified , 12/17/17) Subjective Patient afebrile since 8pm last night. No vomiting, diarrhea or abdominal pain Objective Vital Signs Last 24 Hour Vital Signs Date Time Temp Pulse Resp B/P (MAP) Pulse Ox O2 Delivery O2 Flow Rate FiO2 12/20/17 08:00 98.8 89 20 123/70 (87) 95 98.8 12/20/17 08:00 Room Air 12/20/17 04:00 99.5 94 18 119/71 (87) 94 99.5 12/20/17 00:00 99.3 92 19 121/77 (92) 94 99.3 12/19/17 21:00 Room Air 12/19/17 20:00 99.1 18 120/67 (84) 93 99.1 12/19/17 17:51 102.5 12/19/17 17:21 102.4 12/19/17 16:00 98.9 91 20 121/75 (90) 95 98.9 12/19/17 12:00 98.4 88 20 109/79 (89) 95 98.4 Height (Feet): 5 Height (Inches): 6.00 Weight (Pounds): 171 Objective Gen: NAD, Laying in bed HEENT: NCAT, MMM, EOMI, LUNGS: CTAB, No W/C, No Accessory muscle use CARDS: RRR, S1, S2, No M/R/G, ABD: Soft, NT, ND, No R/G, + BS, No HSM, No Masses NEURO: A/O x 4, Strength and Sensation Grossly intact Microbiology Date/Time Source Procedure Growth Status 12/18/17 11:30 Blood Blood Culture - Preliminary NO GROWTH AFTER 24 HOURS Resulted 12/18/17 11:15 Blood Blood Culture - Preliminary NO GROWTH AFTER 24 HOURS Resulted 12/17/17 19:05 Blood Blood Culture - Preliminary NO GROWTH AFTER 48 HOURS Resulted 12/17/17 19:05 Blood Blood Culture - Preliminary NO GROWTH AFTER 48 HOURS Resulted 12/18/17 17:39 Stool Clostridium difficile Toxin Assay - Final Complete 12/18/17 17:39 Stool Ova and Parasites - Final Complete 12/18/17 17:39 Stool Ova and Parasite Result 1 - Final Complete 12/18/17 13:35 Urine,Clean Catch Urine Culture - Preliminary Gram Negative Bacillus 1 Resulted Laboratory Tests Test 12/20/17 05:45 White Blood Count 6.1 K/UL (4.8-10.8) Red Blood Count 3.92 M/UL (4.70-6.10) L Hemoglobin 11.0 G/DL (14.2-18.0) L Hematocrit 32.1 % (42.0-52.0) L Mean Corpuscular Volume 82 FL (80-99) Mean Corpuscular Hemoglobin 28.1 PG (27.0-31.0) Mean Corpuscular Hemoglobin Concent 34.2 G/DL (32.0-36.0) Red Cell Distribution Width 11.9 % (11.6-14.8) Platelet Count 86 K/UL (150-450) L Mean Platelet Volume 8.1 FL (6.5-10.1) Neutrophils (%) (Auto) % (45.0-75.0) Lymphocytes (%) (Auto) % (20.0-45.0) Monocytes (%) (Auto) % (1.0-10.0) Eosinophils (%) (Auto) % (0.0-3.0) Basophils (%) (Auto) % (0.0-2.0) Differential Total Cells Counted 100 Neutrophils % (Manual) 66 % (45-75) Lymphocytes % (Manual) 20 % (20-45) Monocytes % (Manual) 14 % (1-10) H Eosinophils % (Manual) 0 % (0-3) Basophils % (Manual) 0 % (0-2) Band Neutrophils 0 % (0-8) Platelet Estimate Decreased L Platelet Morphology Normal Red Blood Cell Morphology Normal Hypochromasia Sodium Level 131 MMOL/L (136-145) L Potassium Level 3.4 MMOL/L (3.5-5.1) L Chloride Level 99 MMOL/L (98-107) Carbon Dioxide Level 25 MMOL/L (21-32) Anion Gap 7 mmol/L (5-15) Blood Urea Nitrogen 13 mg/dL (7-18) Creatinine 1.0 MG/DL (0.55-1.30) Estimat Glomerular Filtration Rate > 60 mL/min (>60) Glucose Level 139 MG/DL (74-106) H Calcium Level 7.9 MG/DL (8.5-10.1) L Total Bilirubin 1.1 MG/DL (0.2-1.0) H Direct Bilirubin 0.5 MG/DL (0.0-0.3) H Aspartate Amino Transf (AST/SGOT) 78 U/L (15-37) H Alanine Aminotransferase (ALT/SGPT) 113 U/L (12-78) H Alkaline Phosphatase 125 U/L (46-116) H Total Protein 5.8 G/DL (6.4-8.2) L Albumin 2.3 G/DL (3.4-5.0) L Globulin 3.5 g/dL Albumin/Globulin Ratio 0.7 (1.0-2.7) L Immunoglobulin G Pending Immunoglobulin G1 Pending Immunoglobulin G2 Pending Immunoglobulin G3 Pending Immunoglobulin G4 Pending Anti-Nuclear Antibody Screen Pending SmRNP Antibodies Pending F-Actin IgG Antibody Pending Current Medications Medications (Trade) Dose Ordered Sig/Jasmine Route PRN Reason Start Time Stop Time Status Last Admin Dose Admin Acetaminophen (Tylenol) 650 mg Q4H PRN ORAL fever 12/19/17 15:30 01/16/18 15:29 12/19/17 17:21 Al Hydroxide/Mg Hydroxide (Mylanta II) 30 ml Q6H PRN ORAL dyspepsia 12/19/17 15:30 01/16/18 21:29 Ciprofloxacin (Cipro 500mg tab) 500 mg EVERY 12 HOURS ORAL 12/19/17 21:00 12/25/17 20:59 12/20/17 09:19 Dextrose (Dextrose 50%) 25 ml PRN IV Hypoglycemia 12/19/17 14:30 01/17/18 13:29 Dextrose (Dextrose 50%) 50 ml PRN IV hypoglycemia 12/19/17 14:30 01/17/18 13:29 Dextrose/Sodium Chloride 1,000 ml @ 75 mls/hr [id number] IV 12/19/17 14:30 01/17/18 07:14 12/20/17 04:04 Diphenhydramine HCl (Benadryl) 25 mg Q6H PRN ORAL Itching/Pruritis 12/19/17 15:30 01/16/18 21:29 Lorazepam (Ativan 2mg/ml 1ml) 1 mg Q4H PRN IV agitation 12/19/17 15:30 12/24/17 15:29 Metoclopramide HCl (Reglan) 10 mg Q6H PRN IVP SEVERE NAUSEA 12/19/17 15:30 01/16/18 21:29 Morphine Sulfate (Morphine Sulfate) 2 mg Q4H PRN IVP severe Pain (Pain Scale 7-10) 12/19/17 15:30 12/24/17 15:29 Nitroglycerin (Ntg) 0.4 mg Q5M X 3 DOSES PRN SL Prn Chest Pain 12/19/17 14:30 01/16/18 21:29 Ondansetron HCl (Zofran) 4 mg Q6H PRN IVP Nausea & Vomiting 12/19/17 15:30 01/16/18 21:29 Pantoprazole (Protonix) 40 mg ACBREAKFAST ORAL 12/20/17 06:30 01/19/18 06:29 12/20/17 05:54 Piperacillin Sod/ Tazobactam Sod 3.375 gm/Dextrose 110 ml @ 27.5 mls/hr EVERY 8 HOURS IVPB 12/19/17 22:00 12/24/17 21:59 12/20/17 05:55 Polyethylene Glycol (Miralax) 17 gm HSPRN PRN ORAL Constipation 12/19/17 21:30 01/16/18 21:29 Promethazine HCl 25 mg/Sodium Chloride 56 ml @ 110 mls/hr Q6H PRN IV Refractory N/V 12/19/17 15:30 01/16/18 21:29 Temazepam (Restoril) 15 mg HSPRN PRN ORAL Insomnia 12/19/17 21:30 12/24/17 21:29 Silverio Burton MD Dec 20, 2017 11:27
[2017-12-20 12:00] VITALS: BP 117/67
--- NOTE | 2017-12-20 13:40 | Pulmonology Progress Note ---
Assessment/Plan Problems: (1) Sepsis (2) Intractable diarrhea (3) Abdominal pain (4) Hyponatremia (5) Abnormal liver function test Assessment/Plan afebrile now, less than 24 hoursf/u blood cultures f/u Na f/u ID recommendations continue empiric treatment. med/surg dc home in am if afebrile tonight Subjective ROS Limited/Unobtainable: No Constitutional: Reports: no symptoms HEENT: Repors: no symptoms Respiratory: Reports: no symptoms Allergies: Coded Allergies: No Known Allergies (Unverified , 12/17/17) Objective Last 24 Hour Vital Signs Date Time Temp Pulse Resp B/P (MAP) Pulse Ox O2 Delivery O2 Flow Rate FiO2 12/20/17 12:00 98.4 80 19 117/67 (84) 97 98.4 12/20/17 08:00 98.8 89 20 123/70 (87) 95 98.8 12/20/17 08:00 Room Air 12/20/17 04:00 99.5 94 18 119/71 (87) 94 99.5 12/20/17 00:00 99.3 92 19 121/77 (92) 94 99.3 12/19/17 21:00 Room Air 12/19/17 20:00 99.1 18 120/67 (84) 93 99.1 12/19/17 17:51 102.5 12/19/17 17:21 102.4 12/19/17 16:00 98.9 91 20 121/75 (90) 95 98.9 Intake and Output 12/19/17 12/20/17 19:00 07:00 Intake Total 425 ml 335.0 ml Balance 425 ml 335.0 ml Intake Oral 200 ml IV Total 225 ml 335.0 ml # Voids 1 3 General Appearance: WD/WN HEENT: normocephalic, anicteric Respiratory/Chest: chest wall non-tender, lungs clear, chest wall tender Cardiovascular: normal peripheral pulses, normal rate Abdomen: normal bowel sounds, soft, non tender Extremities: no cyanosis Skin: no ulcers Microbiology Date/Time Source Procedure Growth Status 12/18/17 11:30 Blood Blood Culture - Preliminary NO GROWTH AFTER 24 HOURS Resulted 12/18/17 11:15 Blood Blood Culture - Preliminary NO GROWTH AFTER 24 HOURS Resulted 12/17/17 19:05 Blood Blood Culture - Preliminary NO GROWTH AFTER 48 HOURS Resulted 12/17/17 19:05 Blood Blood Culture - Preliminary NO GROWTH AFTER 48 HOURS Resulted 12/18/17 17:39 Stool Clostridium difficile Toxin Assay - Final Complete 12/18/17 17:39 Stool Ova and Parasites - Final Complete 12/18/17 17:39 Stool Ova and Parasite Result 1 - Final Complete 12/18/17 13:35 Urine,Clean Catch Urine Culture - Preliminary Gram Negative Bacillus 1 Resulted Laboratory Tests 12/20/17 05:45: White Blood Count 6.1, Red Blood Count 3.92L, Hemoglobin 11.0L, Hematocrit 32.1L , Mean Corpuscular Volume 82, Mean Corpuscular Hemoglobin 28.1, Mean Corpuscular Hemoglobin Concent 34.2, Red Cell Distribution Width 11.9, Platelet Count 86L, Mean Platelet Volume 8.1, Neutrophils (%) (Auto) , Lymphocytes (%) ( Auto) , Monocytes (%) (Auto) , Eosinophils (%) (Auto) , Basophils (%) (Auto) , Differential Total Cells Counted 100, Neutrophils % (Manual) 66, Lymphocytes % ( Manual) 20, Monocytes % (Manual) 14H, Eosinophils % (Manual) 0, Basophils % ( Manual) 0, Band Neutrophils 0, Platelet Estimate DecreasedL, Platelet Morphology Normal, Red Blood Cell Morphology Normal, Hypochromasia , Sodium Level 131L, Potassium Level 3.4L, Chloride Level 99, Carbon Dioxide Level 25, Anion Gap 7, Blood Urea Nitrogen 13, Creatinine 1.0, Estimat Glomerular Filtration Rate > 60, Glucose Level 139H, Calcium Level 7.9L, Total Bilirubin 1.1H, Direct Bilirubin 0.5H, Aspartate Amino Transf (AST/SGOT) 78H, Alanine Aminotransferase (ALT/SGPT) 113H, Alkaline Phosphatase 125H, Total Protein 5.8L , Albumin 2.3L, Globulin 3.5, Albumin/Globulin Ratio 0.7L, Immunoglobulin G [ Pending], Immunoglobulin G1 [Pending], Immunoglobulin G2 [Pending], Immunoglobulin G3 [Pending], Immunoglobulin G4 [Pending], Anti-Nuclear Antibody Screen [Pending], SmRNP Antibodies [Pending], F-Actin IgG Antibody [Pending] Current Medications Medications (Trade) Dose Ordered Sig/Jasmine Route PRN Reason Start Time Stop Time Status Last Admin Dose Admin Acetaminophen (Tylenol) 650 mg Q4H PRN ORAL fever 12/19/17 15:30 01/16/18 15:29 12/19/17 17:21 Al Hydroxide/Mg Hydroxide (Mylanta II) 30 ml Q6H PRN ORAL dyspepsia 12/19/17 15:30 01/16/18 21:29 Ciprofloxacin (Cipro 500mg tab) 500 mg EVERY 12 HOURS ORAL 12/19/17 21:00 12/25/17 20:59 12/20/17 09:19 Dextrose (Dextrose 50%) 25 ml PRN IV Hypoglycemia 12/19/17 14:30 01/17/18 13:29 Dextrose (Dextrose 50%) 50 ml PRN IV hypoglycemia 12/19/17 14:30 01/17/18 13:29 Dextrose/Sodium Chloride 1,000 ml @ 75 mls/hr [id number] IV 12/19/17 14:30 01/17/18 07:14 12/20/17 04:04 Diphenhydramine HCl (Benadryl) 25 mg Q6H PRN ORAL Itching/Pruritis 12/19/17 15:30 01/16/18 21:29 Lorazepam (Ativan 2mg/ml 1ml) 1 mg Q4H PRN IV agitation 12/19/17 15:30 12/24/17 15:29 Metoclopramide HCl (Reglan) 10 mg Q6H PRN IVP SEVERE NAUSEA 12/19/17 15:30 01/16/18 21:29 Morphine Sulfate (Morphine Sulfate) 2 mg Q4H PRN IVP severe Pain (Pain Scale 7-10) 12/19/17 15:30 12/24/17 15:29 Nitroglycerin (Ntg) 0.4 mg Q5M X 3 DOSES PRN SL Prn Chest Pain 12/19/17 14:30 01/16/18 21:29 Ondansetron HCl (Zofran) 4 mg Q6H PRN IVP Nausea & Vomiting 12/19/17 15:30 01/16/18 21:29 Pantoprazole (Protonix) 40 mg ACBREAKFAST ORAL 12/20/17 06:30 01/19/18 06:29 12/20/17 05:54 Polyethylene Glycol (Miralax) 17 gm HSPRN PRN ORAL Constipation 9/18/18 21:30 01/16/18 21:29 Promethazine HCl 25 mg/Sodium Chloride 56 ml @ 110 mls/hr Q6H PRN IV Refractory N/V 12/19/17 15:30 01/16/18 21:29 Temazepam (Restoril) 15 mg HSPRN PRN ORAL Insomnia 12/19/17 21:30 12/24/17 21:29 Kaushal Goodwin MD Dec 20, 2017 13:40
--- NOTE | 2017-12-20 14:29 | GI Progress Note ---
Assessment/Plan Problems: (1) Abdominal pain ICD Codes: R10.9 - Unspecified abdominal pain SNOMED: 90417181 (2) Intractable diarrhea ICD Codes: R19.7 - Diarrhea, unspecified SNOMED: 141361184 (3) Abdominal distention ICD Codes: R14.0 - Abdominal distension (gaseous) SNOMED: 90040312 Status: stable Status Narrative Discussed with Dr. Prabhakar. Assessment/Plan CT AP reviewed. transaminitis >> unknown etiology at this time >> will order for autoimmune - abdominal US reviewed, unremarkable. - hepatitis panel negative - pt denies ETOH use cdiff negative OB stool negative madrigal culture negative okay for DC per GI standpoint adv diet cont PPI monitor H&H, prn transfusions bowel regime fu labs, RAMIRO, AMA, SMA, IgG outpatient colonoscopy/needs follow up with PCP or GI to follow LFTs, autoimmune markers The patient was seen and examined at bedside and all new and available data was reviewed in the patients chart. I agree with the above findings, impression and plan. (Patient seen earlier today. Signature stamp does not reflect patient encounter time.). - Jordin Prabhakar MD Subjective Gastrointestinal/Abdominal: Reports: no symptoms Subjective epigastric pain resolved Objective Last 24 Hour Vital Signs Date Time Temp Pulse Resp B/P (MAP) Pulse Ox O2 Delivery O2 Flow Rate FiO2 12/20/17 12:00 98.4 80 19 117/67 (84) 97 98.4 12/20/17 08:00 98.8 89 20 123/70 (87) 95 98.8 12/20/17 08:00 Room Air 12/20/17 04:00 99.5 94 18 119/71 (87) 94 99.5 12/20/17 00:00 99.3 92 19 121/77 (92) 94 99.3 12/19/17 21:00 Room Air 12/19/17 20:00 99.1 18 120/67 (84) 93 99.1 12/19/17 17:51 102.5 12/19/17 17:21 102.4 12/19/17 16:00 98.9 91 20 121/75 (90) 95 98.9 Intake and Output 12/19/17 12/20/17 19:00 07:00 Intake Total 425 ml 335.0 ml Balance 425 ml 335.0 ml Intake Oral 200 ml IV Total 225 ml 335.0 ml # Voids 1 3 Laboratory Tests Test 12/20/17 05:45 White Blood Count 6.1 K/UL (4.8-10.8) Red Blood Count 3.92 M/UL (4.70-6.10) L Hemoglobin 11.0 G/DL (14.2-18.0) L Hematocrit 32.1 % (42.0-52.0) L Mean Corpuscular Volume 82 FL (80-99) Mean Corpuscular Hemoglobin 28.1 PG (27.0-31.0) Mean Corpuscular Hemoglobin Concent 34.2 G/DL (32.0-36.0) Red Cell Distribution Width 11.9 % (11.6-14.8) Platelet Count 86 K/UL (150-450) L Mean Platelet Volume 8.1 FL (6.5-10.1) Neutrophils (%) (Auto) % (45.0-75.0) Lymphocytes (%) (Auto) % (20.0-45.0) Monocytes (%) (Auto) % (1.0-10.0) Eosinophils (%) (Auto) % (0.0-3.0) Basophils (%) (Auto) % (0.0-2.0) Differential Total Cells Counted 100 Neutrophils % (Manual) 66 % (45-75) Lymphocytes % (Manual) 20 % (20-45) Monocytes % (Manual) 14 % (1-10) H Eosinophils % (Manual) 0 % (0-3) Basophils % (Manual) 0 % (0-2) Band Neutrophils 0 % (0-8) Platelet Estimate Decreased L Platelet Morphology Normal Red Blood Cell Morphology Normal Hypochromasia Sodium Level 131 MMOL/L (136-145) L Potassium Level 3.4 MMOL/L (3.5-5.1) L Chloride Level 99 MMOL/L (98-107) Carbon Dioxide Level 25 MMOL/L (21-32) Anion Gap 7 mmol/L (5-15) Blood Urea Nitrogen 13 mg/dL (7-18) Creatinine 1.0 MG/DL (0.55-1.30) Estimat Glomerular Filtration Rate > 60 mL/min (>60) Glucose Level 139 MG/DL (74-106) H Calcium Level 7.9 MG/DL (8.5-10.1) L Total Bilirubin 1.1 MG/DL (0.2-1.0) H Direct Bilirubin 0.5 MG/DL (0.0-0.3) H Aspartate Amino Transf (AST/SGOT) 78 U/L (15-37) H Alanine Aminotransferase (ALT/SGPT) 113 U/L (12-78) H Alkaline Phosphatase 125 U/L (46-116) H Total Protein 5.8 G/DL (6.4-8.2) L Albumin 2.3 G/DL (3.4-5.0) L Globulin 3.5 g/dL Albumin/Globulin Ratio 0.7 (1.0-2.7) L Immunoglobulin G Pending Immunoglobulin G1 Pending Immunoglobulin G2 Pending Immunoglobulin G3 Pending Immunoglobulin G4 Pending Anti-Nuclear Antibody Screen Pending SmRNP Antibodies Pending F-Actin IgG Antibody Pending Height (Feet): 5 Height (Inches): 6.00 Weight (Pounds): 171 General Appearance: WD/WN, no apparent distress, alert Cardiovascular: normal rate Respiratory/Chest: normal breath sounds, no respiratory distress Abdominal Exam: normal bowel sounds, non tender, soft Extremities: normal range of motion, non-tender Dulce Luz NP Dec 20, 2017 14:29
[2017-12-20 16:00] VITALS: BP 113/71
--- NOTE | 2017-12-20 18:16 | Internal Med Progress Note ---
Subjective Date of Service: Dec 20, 2017 Physician Name Macedo,Coleman Attending Physician Juan Manuel Richards MD Current Medications Medications (Trade) Dose Ordered Sig/Jasmine Route PRN Reason Start Time Stop Time Status Last Admin Dose Admin Acetaminophen (Tylenol) 650 mg Q4H PRN ORAL fever 12/19/17 15:30 01/16/18 15:29 12/19/17 17:21 Al Hydroxide/Mg Hydroxide (Mylanta II) 30 ml Q6H PRN ORAL dyspepsia 12/19/17 15:30 01/16/18 21:29 Ciprofloxacin (Cipro 500mg tab) 500 mg EVERY 12 HOURS ORAL 12/19/17 21:00 12/25/17 20:59 12/20/17 09:19 Dextrose (Dextrose 50%) 25 ml PRN IV Hypoglycemia 12/19/17 14:30 01/17/18 13:29 Dextrose (Dextrose 50%) 50 ml PRN IV hypoglycemia 12/19/17 14:30 01/17/18 13:29 Diphenhydramine HCl (Benadryl) 25 mg Q6H PRN ORAL Itching/Pruritis 12/19/17 15:30 01/16/18 21:29 Lorazepam (Ativan 2mg/ml 1ml) 1 mg Q4H PRN IV agitation 12/19/17 15:30 12/24/17 15:29 Metoclopramide HCl (Reglan) 10 mg Q6H PRN IVP SEVERE NAUSEA 12/19/17 15:30 01/16/18 21:29 Morphine Sulfate (Morphine Sulfate) 2 mg Q4H PRN IVP severe Pain (Pain Scale 7-10) 12/19/17 15:30 12/24/17 15:29 Nitroglycerin (Ntg) 0.4 mg Q5M X 3 DOSES PRN SL Prn Chest Pain 12/19/17 14:30 01/16/18 21:29 Ondansetron HCl (Zofran) 4 mg Q6H PRN IVP Nausea & Vomiting 12/19/17 15:30 01/16/18 21:29 Pantoprazole (Protonix) 40 mg ACBREAKFAST ORAL 12/20/17 06:30 01/19/18 06:29 12/20/17 05:54 Polyethylene Glycol (Miralax) 17 gm HSPRN PRN ORAL Constipation 12/19/17 21:30 10/16/18 21:29 Promethazine HCl 25 mg/Sodium Chloride 56 ml @ 110 mls/hr Q6H PRN IV Refractory N/V 12/19/17 15:30 01/16/18 21:29 Temazepam (Restoril) 15 mg HSPRN PRN ORAL Insomnia 12/19/17 21:30 12/24/17 21:29 Allergies: Coded Allergies: No Known Allergies (Unverified , 12/17/17) ROS Limited/Unobtainable: No Constitutional: Reports: fever HEENT: Reports: no symptoms Cardiovascular: Reports: no symptoms Gastrointestinal/Abdominal: Reports: diarrhea, nausea, vomiting Genitourinary: Reports: no symptoms Neurologic/Psychiatric: Reports: no symptoms Subjective 62 YO M admitted with nausea, vomiting and diarrhea. Now abdominal pain and elevated liver enz. Cover for Int Ronny-Dr Richards. Fever to 102.5 F overnight Objective Last Vital Signs Date Time Temp Pulse Resp B/P (MAP) Pulse Ox O2 Delivery O2 Flow Rate FiO2 12/20/17 16:00 98.2 78 19 113/71 (85) 95 98.2 12/20/17 08:00 Room Air Laboratory Tests Test 12/20/17 05:45 White Blood Count 6.1 K/UL (4.8-10.8) Red Blood Count 3.92 M/UL (4.70-6.10) L Hemoglobin 11.0 G/DL (14.2-18.0) L Hematocrit 32.1 % (42.0-52.0) L Mean Corpuscular Volume 82 FL (80-99) Mean Corpuscular Hemoglobin 28.1 PG (27.0-31.0) Mean Corpuscular Hemoglobin Concent 34.2 G/DL (32.0-36.0) Red Cell Distribution Width 11.9 % (11.6-14.8) Platelet Count 86 K/UL (150-450) L Mean Platelet Volume 8.1 FL (6.5-10.1) Neutrophils (%) (Auto) % (45.0-75.0) Lymphocytes (%) (Auto) % (20.0-45.0) Monocytes (%) (Auto) % (1.0-10.0) Eosinophils (%) (Auto) % (0.0-3.0) Basophils (%) (Auto) % (0.0-2.0) Differential Total Cells Counted 100 Neutrophils % (Manual) 66 % (45-75) Lymphocytes % (Manual) 20 % (20-45) Monocytes % (Manual) 14 % (1-10) H Eosinophils % (Manual) 0 % (0-3) Basophils % (Manual) 0 % (0-2) Band Neutrophils 0 % (0-8) Platelet Estimate Decreased L Platelet Morphology Normal Red Blood Cell Morphology Normal Hypochromasia Sodium Level 131 MMOL/L (136-145) L Potassium Level 3.4 MMOL/L (3.5-5.1) L Chloride Level 99 MMOL/L (98-107) Carbon Dioxide Level 25 MMOL/L (21-32) Anion Gap 7 mmol/L (5-15) Blood Urea Nitrogen 13 mg/dL (7-18) Creatinine 1.0 MG/DL (0.55-1.30) Estimat Glomerular Filtration Rate > 60 mL/min (>60) Glucose Level 139 MG/DL (74-106) H Calcium Level 7.9 MG/DL (8.5-10.1) L Total Bilirubin 1.1 MG/DL (0.2-1.0) H Direct Bilirubin 0.5 MG/DL (0.0-0.3) H Aspartate Amino Transf (AST/SGOT) 78 U/L (15-37) H Alanine Aminotransferase (ALT/SGPT) 113 U/L (12-78) H Alkaline Phosphatase 125 U/L (46-116) H Total Protein 5.8 G/DL (6.4-8.2) L Albumin 2.3 G/DL (3.4-5.0) L Globulin 3.5 g/dL Albumin/Globulin Ratio 0.7 (1.0-2.7) L Immunoglobulin G Pending Immunoglobulin G1 Pending Immunoglobulin G2 Pending Immunoglobulin G3 Pending Immunoglobulin G4 Pending Anti-Nuclear Antibody Screen Pending SmRNP Antibodies Pending F-Actin IgG Antibody Pending Microbiology Date/Time Source Procedure Growth Status 12/18/17 11:30 Blood Blood Culture - Preliminary NO GROWTH AFTER 24 HOURS Resulted 12/18/17 11:15 Blood Blood Culture - Preliminary NO GROWTH AFTER 24 HOURS Resulted 12/17/17 19:05 Blood Blood Culture - Preliminary NO GROWTH AFTER 48 HOURS Resulted 12/17/17 19:05 Blood Blood Culture - Preliminary NO GROWTH AFTER 48 HOURS Resulted 12/18/17 17:39 Stool Clostridium difficile Toxin Assay - Final Complete 12/18/17 17:39 Stool Ova and Parasites - Final Complete 12/18/17 17:39 Stool Ova and Parasite Result 1 - Final Complete 12/18/17 13:35 Urine,Clean Catch Urine Culture - Preliminary Gram Negative Bacillus 1 Resulted Intake and Output 12/19/17 12/20/17 19:00 07:00 Intake Total 425 ml 335.0 ml Balance 425 ml 335.0 ml Intake Oral 200 ml IV Total 225 ml 335.0 ml # Voids 1 3 Objective GENERAL: The patient is well-developed and well-nourished male, in no apparent distress. HEENT: Eyes, pupils equal and responsive to light and accommodation. Extraocular movements are intact. NECK: Supple without lymphadenopathy. CHEST: Lungs are clear to auscultation bilaterally without wheezes or rales. CARDIOVASCULAR: Regular rate. S1 and S2 are normal without murmurs, rubs, or gallops. ABDOMEN: Soft and tender to palpation epigastric, otherwise without rebound or guarding. NEUROLOGIC: Cranial nerves II through XII are grossly intact without focal deficits. Motor strength is 5/5 bilaterally. Deep tendon reflexes are 2+ plantar. Assessment/Plan Problem List: (1) Nausea & vomiting (2) Diarrhea Assessment & Plan: See GI note. Stool studies neg so far (3) Hypertension (4) Abnormal liver function test Assessment & Plan: See GI note. Workup neg so far (5) Hyponatremia Assessment & Plan: Resolving on IV Fluids (6) Fever Assessment & Plan: blood cult=no growth. continue cipro per ID Status: progressing Coleman Macedo MD Dec 20, 2017 18:16
[2017-12-20 20:00] VITALS: BP 116/71
[2017-12-21] VITALS: BP 135/81
[2017-12-21 04:00] VITALS: BP 103/72
[2017-12-21 06:23] LABS: BASOPHILS % (AUTO) 1.6 % (0.0-2.0); EOSINOPHILS % (AUTO) 0.4 % (0.0-3.0); HEMATOCRIT 32.6 % (42.0-52.0); LYMPHOCYTES % (AUTO) 26.4 % (20.0-45.0); MEAN CORPUSCULAR VOLUME 83 FL (80-99); MONOCYTES % (AUTO) 9.4 % (1.0-10.0); NEUTROPHILS % (AUTO) 62.3 % (45.0-75.0); PLATELET COUNT 142 K/UL (150-450); RED BLOOD COUNT 3.93 M/UL (4.70-6.10); RED CELL DISTRIBUTION WIDTH 12.2 % (11.6-14.8)
[2017-12-21 06:31] LABS: ALANINE AMINOTRANSFERASE 182 U/L (12-78); ALBUMIN 2.4 G/DL (3.4-5.0); ALBUMIN/GLOBULIN RATIO 0.6 (1.0-2.7); ALKALINE PHOSPHATASE 156 U/L (46-116); ANION GAP 5 mmol/L (5-15); ASPARTATE AMINO TRANSFERASE 207 U/L (15-37); BILIRUBIN,TOTAL 0.8 MG/DL (0.2-1.0); BLOOD UREA NITROGEN 18 mg/dL (7-18); CARBON DIOXIDE 27 MMOL/L (21-32); CHLORIDE 102 MMOL/L (98-107); CREATININE 1.1 MG/DL (0.55-1.30); PHOSPHORUS 3.8 MG/DL (2.5-4.9); POTASSIUM 4.1 MMOL/L (3.5-5.1); SODIUM 134 MMOL/L (136-145)
[2017-12-21 07:58] VITALS: BP 109/72
[2017-12-21] MEDS: Ciprofloxacin 500mg tab ORAL SCH (08:15)
--- NOTE | 2017-12-21 09:15 | Infectious Diseases Prog Note ---
Assessment/Plan Assessment/Plan 62 yo male with PMHx of HTN who presented to the ED yesterday with nausea, vomiting, diarrhea and fever. Fever - Resolved Unclear source - Possible viral infectious diarrhea but DDx in broad - less likley Rheumatologic, Cancer Will work up infectious diarrhea negative CRP 13, ESR 95 Negative Hep A/B/C, Neg HIV, RAMIRO pending No Leukocytosis No GIB HTN HDL PLAN: - Continue Ciprofloxacin #3/7 (End date 12/25/17) - 12/20 - SP Zosyn #2 - Monitor temps and WBCs We will continue to follow with you. Subjective Allergies: Coded Allergies: No Known Allergies (Unverified , 12/17/17) Subjective Patient afebrile > 36hr No vomiting, diarrhea or abdominal pain Objective Vital Signs Last 24 Hour Vital Signs Date Time Temp Pulse Resp B/P (MAP) Pulse Ox O2 Delivery O2 Flow Rate FiO2 12/21/17 07:58 98.3 86 20 109/72 (84) 94 98.3 12/21/17 04:00 98.7 85 20 103/72 (82) 94 98.7 12/21/17 00:00 98.4 89 19 135/81 (99) 97 98.4 12/20/17 21:00 Room Air 12/20/17 20:00 98.4 80 19 116/71 (86) 96 98.4 12/20/17 16:00 98.2 78 19 113/71 (85) 95 98.2 12/20/17 12:00 98.4 80 19 117/67 (84) 97 98.4 Height (Feet): 5 Height (Inches): 6.00 Weight (Pounds): 171 Objective Gen: NAD, Sitting in a chair HEENT: NCAT, MMM, EOMI, LUNGS: CTAB, No W/C, No Accessory muscle use CARDS: RRR, S1, S2, No M/R/G, ABD: Soft, NT, ND, No R/G, + BS, No HSM, No Masses NEURO: A/O x 4, Strength and Sensation Grossly intact Microbiology Date/Time Source Procedure Growth Status 12/19/17 19:50 Blood Blood Culture - Preliminary NO GROWTH AFTER 24 HOURS Resulted 12/19/17 19:45 Blood Blood Culture - Preliminary NO GROWTH AFTER 24 HOURS Resulted 12/18/17 11:30 Blood Blood Culture - Preliminary NO GROWTH AFTER 48 HOURS Resulted 12/18/17 11:15 Blood Blood Culture - Preliminary NO GROWTH AFTER 48 HOURS Resulted 12/18/17 17:39 Stool Clostridium difficile Toxin Assay - Final Complete 12/18/17 17:39 Stool Ova and Parasites - Final Complete 12/18/17 17:39 Stool Ova and Parasite Result 1 - Final Complete 12/18/17 13:35 Urine,Clean Catch Urine Culture - Final Escherichia Coli Complete Laboratory Tests Test 12/21/17 05:10 White Blood Count 8.0 K/UL (4.8-10.8) Red Blood Count 3.93 M/UL (4.70-6.10) L Hemoglobin 11.0 G/DL (14.2-18.0) L Hematocrit 32.6 % (42.0-52.0) L Mean Corpuscular Volume 83 FL (80-99) Mean Corpuscular Hemoglobin 27.9 PG (27.0-31.0) Mean Corpuscular Hemoglobin Concent 33.6 G/DL (32.0-36.0) Red Cell Distribution Width 12.2 % (11.6-14.8) Platelet Count 142 K/UL (150-450) #L Mean Platelet Volume 7.9 FL (6.5-10.1) Neutrophils (%) (Auto) 62.3 % (45.0-75.0) Lymphocytes (%) (Auto) 26.4 % (20.0-45.0) Monocytes (%) (Auto) 9.4 % (1.0-10.0) Eosinophils (%) (Auto) 0.4 % (0.0-3.0) Basophils (%) (Auto) 1.6 % (0.0-2.0) Erythrocyte Sedimentation Rate 92 MM/HR (0-20) H Sodium Level 134 MMOL/L (136-145) L Potassium Level 4.1 MMOL/L (3.5-5.1) Chloride Level 102 MMOL/L (98-107) Carbon Dioxide Level 27 MMOL/L (21-32) Anion Gap 5 mmol/L (5-15) Blood Urea Nitrogen 18 mg/dL (7-18) Creatinine 1.1 MG/DL (0.55-1.30) Estimat Glomerular Filtration Rate > 60 mL/min (>60) Glucose Level 109 MG/DL (74-106) H Calcium Level 8.0 MG/DL (8.5-10.1) L Phosphorus Level 3.8 MG/DL (2.5-4.9) Magnesium Level 2.6 MG/DL (1.8-2.4) H Total Bilirubin 0.8 MG/DL (0.2-1.0) Aspartate Amino Transf (AST/SGOT) 207 U/L (15-37) H Alanine Aminotransferase (ALT/SGPT) 182 U/L (12-78) H Alkaline Phosphatase 156 U/L (46-116) H Total Protein 6.2 G/DL (6.4-8.2) L Albumin 2.4 G/DL (3.4-5.0) L Globulin 3.8 g/dL Albumin/Globulin Ratio 0.6 (1.0-2.7) L Current Medications Medications (Trade) Dose Ordered Sig/Jasmine Route PRN Reason Start Time Stop Time Status Last Admin Dose Admin Acetaminophen (Tylenol) 650 mg Q4H PRN ORAL fever 12/19/17 15:30 01/16/18 15:29 12/19/17 17:21 Al Hydroxide/Mg Hydroxide (Mylanta II) 30 ml Q6H PRN ORAL dyspepsia 12/19/17 15:30 01/16/18 21:29 Ciprofloxacin (Cipro 500mg tab) 500 mg EVERY 12 HOURS ORAL 12/19/17 21:00 12/25/17 20:59 12/21/17 08:15 Dextrose (Dextrose 50%) 25 ml PRN IV Hypoglycemia 12/19/17 14:30 01/17/18 13:29 Dextrose (Dextrose 50%) 50 ml PRN IV hypoglycemia 12/19/17 14:30 01/17/18 13:29 Diphenhydramine HCl (Benadryl) 25 mg Q6H PRN ORAL Itching/Pruritis 12/19/17 15:30 01/16/18 21:29 Lorazepam (Ativan 2mg/ml 1ml) 1 mg Q4H PRN IV agitation 12/19/17 15:30 12/24/17 15:29 Metoclopramide HCl (Reglan) 10 mg Q6H PRN IVP SEVERE NAUSEA 12/19/17 15:30 01/16/18 21:29 Morphine Sulfate (Morphine Sulfate) 2 mg Q4H PRN IVP severe Pain (Pain Scale 7-10) 12/19/17 15:30 12/24/17 15:29 Nitroglycerin (Ntg) 0.4 mg Q5M X 3 DOSES PRN SL Prn Chest Pain 12/19/17 14:30 01/16/18 21:29 Ondansetron HCl (Zofran) 4 mg Q6H PRN IVP Nausea & Vomiting 12/19/17 15:30 01/16/18 21:29 Pantoprazole (Protonix) 40 mg ACBREAKFAST ORAL 12/20/17 06:30 01/19/18 06:29 12/21/17 05:49 Polyethylene Glycol (Miralax) 17 gm HSPRN PRN ORAL Constipation 12/19/17 21:30 01/16/18 21:29 Promethazine HCl 25 mg/Sodium Chloride 56 ml @ 110 mls/hr Q6H PRN IV Refractory N/V 12/19/17 15:30 01/16/18 21:29 Temazepam (Restoril) 15 mg HSPRN PRN ORAL Insomnia 12/19/17 21:30 12/24/17 21:29 Silverio Burton MD Dec 21, 2017 09:15
--- NOTE | 2017-12-21 10:47 | GI Progress Note ---
Assessment/Plan Problems: (1) Abdominal pain ICD Codes: R10.9 - Unspecified abdominal pain SNOMED: 95181748 (2) Intractable diarrhea ICD Codes: R19.7 - Diarrhea, unspecified SNOMED: 944548510 (3) Abdominal distention ICD Codes: R14.0 - Abdominal distension (gaseous) SNOMED: 16081559 (4) Fever ICD Codes: R50.9 - Fever, unspecified SNOMED: 466336571 (5) Abnormal liver function test ICD Codes: R94.5 - Abnormal results of liver function studies SNOMED: 781827376 Status: stable Status Narrative Discussed with Dr. Prabhakar. Assessment/Plan CT AP reviewed. transaminitis >> unknown etiology at this time >> will order for autoimmune - abdominal US reviewed, unremarkable. - hepatitis panel negative - pt denies ETOH use cdiff negative OB stool negative madrigal culture negative afebrile okay for DC per GI standpoint adv diet cont PPI monitor H&H, prn transfusions bowel regime fu labs, RAMIRO, AMA, SMA, IgG outpatient colonoscopy/needs follow up with PCP or GI to follow LFTs, autoimmune markers The patient was seen and examined at bedside and all new and available data was reviewed in the patients chart. I agree with the above findings, impression and plan. (Patient seen earlier today. Signature stamp does not reflect patient encounter time.). - Jordin Prabhakar MD Subjective Subjective epigastric pain resolved Objective Last 24 Hour Vital Signs Date Time Temp Pulse Resp B/P (MAP) Pulse Ox O2 Delivery O2 Flow Rate FiO2 12/21/17 08:00 Room Air 12/21/17 07:58 98.3 86 20 109/72 (84) 94 98.3 12/21/17 04:00 98.7 85 20 103/72 (82) 94 98.7 12/21/17 00:00 98.4 89 19 135/81 (99) 97 98.4 12/20/17 21:00 Room Air 12/20/17 20:00 98.4 80 19 116/71 (86) 96 98.4 12/20/17 16:00 98.2 78 19 113/71 (85) 95 98.2 12/20/17 12:00 98.4 80 19 117/67 (84) 97 98.4 Intake and Output 12/20/17 12/21/17 19:00 07:00 Intake Total 360 ml Balance 360 ml Intake Oral 360 ml # Voids 3 # Bowel Movements 2 Laboratory Tests Test 12/21/17 05:10 White Blood Count 8.0 K/UL (4.8-10.8) Red Blood Count 3.93 M/UL (4.70-6.10) L Hemoglobin 11.0 G/DL (14.2-18.0) L Hematocrit 32.6 % (42.0-52.0) L Mean Corpuscular Volume 83 FL (80-99) Mean Corpuscular Hemoglobin 27.9 PG (27.0-31.0) Mean Corpuscular Hemoglobin Concent 33.6 G/DL (32.0-36.0) Red Cell Distribution Width 12.2 % (11.6-14.8) Platelet Count 142 K/UL (150-450) #L Mean Platelet Volume 7.9 FL (6.5-10.1) Neutrophils (%) (Auto) 62.3 % (45.0-75.0) Lymphocytes (%) (Auto) 26.4 % (20.0-45.0) Monocytes (%) (Auto) 9.4 % (1.0-10.0) Eosinophils (%) (Auto) 0.4 % (0.0-3.0) Basophils (%) (Auto) 1.6 % (0.0-2.0) Erythrocyte Sedimentation Rate 92 MM/HR (0-20) H Sodium Level 134 MMOL/L (136-145) L Potassium Level 4.1 MMOL/L (3.5-5.1) Chloride Level 102 MMOL/L (98-107) Carbon Dioxide Level 27 MMOL/L (21-32) Anion Gap 5 mmol/L (5-15) Blood Urea Nitrogen 18 mg/dL (7-18) Creatinine 1.1 MG/DL (0.55-1.30) Estimat Glomerular Filtration Rate > 60 mL/min (>60) Glucose Level 109 MG/DL (74-106) H Calcium Level 8.0 MG/DL (8.5-10.1) L Phosphorus Level 3.8 MG/DL (2.5-4.9) Magnesium Level 2.6 MG/DL (1.8-2.4) H Total Bilirubin 0.8 MG/DL (0.2-1.0) Aspartate Amino Transf (AST/SGOT) 207 U/L (15-37) H Alanine Aminotransferase (ALT/SGPT) 182 U/L (12-78) H Alkaline Phosphatase 156 U/L (46-116) H Total Protein 6.2 G/DL (6.4-8.2) L Albumin 2.4 G/DL (3.4-5.0) L Globulin 3.8 g/dL Albumin/Globulin Ratio 0.6 (1.0-2.7) L Height (Feet): 5 Height (Inches): 6.00 Weight (Pounds): 171 General Appearance: WD/WN, no apparent distress, alert Cardiovascular: normal rate Respiratory/Chest: normal breath sounds, no respiratory distress Abdominal Exam: normal bowel sounds, non tender, soft Extremities: normal range of motion, non-tender Dulce Luz NP Dec 21, 2017 10:47
[2017-12-21 12:00] VITALS: BP 116/69
[2017-12-21] MEDS ORDERED: CIPRO500 MG/51 PO (13:16)
--- NOTE | 2017-12-21 13:18 | Pulmonology Progress Note ---
Assessment/Plan Problems: (1) Sepsis (2) Intractable diarrhea (3) Abdominal pain (4) Hyponatremia (5) Abnormal liver function test Assessment/Plan afebrile now, less than 24 hoursf/u blood cultures f/u Na f/u ID recommendations continue empiric treatment. med/surg dc home today Subjective ROS Limited/Unobtainable: No Constitutional: Reports: no symptoms HEENT: Repors: no symptoms Allergies: Coded Allergies: No Known Allergies (Unverified , 12/17/17) Objective Last 24 Hour Vital Signs Date Time Temp Pulse Resp B/P (MAP) Pulse Ox O2 Delivery O2 Flow Rate FiO2 12/21/17 12:00 97.9 78 22 116/69 (85) 96 97.9 12/21/17 08:00 Room Air 12/21/17 07:58 98.3 86 20 109/72 (84) 94 98.3 12/21/17 04:00 98.7 85 20 103/72 (82) 94 98.7 12/21/17 00:00 98.4 89 19 135/81 (99) 97 98.4 12/20/17 21:00 Room Air 12/20/17 20:00 98.4 80 19 116/71 (86) 96 98.4 12/20/17 16:00 98.2 78 19 113/71 (85) 95 98.2 Intake and Output 12/20/17 12/21/17 18:59 06:59 Intake Total 360 ml Balance 360 ml Intake Oral 360 ml # Voids 3 # Bowel Movements 2 General Appearance: WD/WN HEENT: normocephalic, atraumatic Respiratory/Chest: chest wall non-tender, lungs clear Cardiovascular: normal peripheral pulses, normal rate Abdomen: normal bowel sounds, soft, non tender Genitourinary: normal external genitalia Extremities: no cyanosis Skin: no rash Microbiology Date/Time Source Procedure Growth Status 12/19/17 19:50 Blood Blood Culture - Preliminary NO GROWTH AFTER 24 HOURS Resulted 12/19/17 19:45 Blood Blood Culture - Preliminary NO GROWTH AFTER 24 HOURS Resulted 12/18/17 17:39 Stool Clostridium difficile Toxin Assay - Final Complete 12/18/17 17:39 Stool Ova and Parasites - Final Complete 12/18/17 17:39 Stool Ova and Parasite Result 1 - Final Complete 12/18/17 13:35 Urine,Clean Catch Urine Culture - Final Escherichia Coli Complete Laboratory Tests 12/21/17 05:10: White Blood Count 8.0, Red Blood Count 3.93L, Hemoglobin 11.0L, Hematocrit 32.6L , Mean Corpuscular Volume 83, Mean Corpuscular Hemoglobin 27.9, Mean Corpuscular Hemoglobin Concent 33.6, Red Cell Distribution Width 12.2, Platelet Count 142#L, Mean Platelet Volume 7.9, Neutrophils (%) (Auto) 62.3, Lymphocytes (%) (Auto) 26.4, Monocytes (%) (Auto) 9.4, Eosinophils (%) (Auto) 0.4, Basophils (%) (Auto) 1.6, Erythrocyte Sedimentation Rate 92H, Sodium Level 134L , Potassium Level 4.1, Chloride Level 102, Carbon Dioxide Level 27, Anion Gap 5 , Blood Urea Nitrogen 18, Creatinine 1.1, Estimat Glomerular Filtration Rate > 60, Glucose Level 109H, Calcium Level 8.0L, Phosphorus Level 3.8, Magnesium Level 2.6H, Total Bilirubin 0.8, Aspartate Amino Transf (AST/SGOT) 207H, Alanine Aminotransferase (ALT/SGPT) 182H, Alkaline Phosphatase 156H, Total Protein 6.2L, Albumin 2.4L, Globulin 3.8, Albumin/Globulin Ratio 0.6L Current Medications Medications (Trade) Dose Ordered Sig/Jasmine Route PRN Reason Start Time Stop Time Status Last Admin Dose Admin Acetaminophen (Tylenol) 650 mg Q4H PRN ORAL fever 12/19/17 15:30 01/16/18 15:29 12/19/17 17:21 Al Hydroxide/Mg Hydroxide (Mylanta II) 30 ml Q6H PRN ORAL dyspepsia 12/19/17 15:30 01/16/18 21:29 Ciprofloxacin (Cipro 500mg tab) 500 mg EVERY 12 HOURS ORAL 12/19/17 21:00 12/25/17 20:59 12/21/17 08:15 Dextrose (Dextrose 50%) 25 ml PRN IV Hypoglycemia 12/19/17 14:30 01/17/18 13:29 Dextrose (Dextrose 50%) 50 ml PRN IV hypoglycemia 12/19/17 14:30 01/17/18 13:29 Diphenhydramine HCl (Benadryl) 25 mg Q6H PRN ORAL Itching/Pruritis 12/19/17 15:30 01/16/18 21:29 Lorazepam (Ativan 2mg/ml 1ml) 1 mg Q4H PRN IV agitation 12/19/17 15:30 12/24/17 15:29 Metoclopramide HCl (Reglan) 10 mg Q6H PRN IVP SEVERE NAUSEA 12/19/17 15:30 01/16/18 21:29 Morphine Sulfate (Morphine Sulfate) 2 mg Q4H PRN IVP severe Pain (Pain Scale 7-10) 12/19/17 15:30 12/24/17 15:29 Nitroglycerin (Ntg) 0.4 mg Q5M X 3 DOSES PRN SL Prn Chest Pain 12/19/17 14:30 01/16/18 21:29 Ondansetron HCl (Zofran) 4 mg Q6H PRN IVP Nausea & Vomiting 12/19/17 15:30 01/16/18 21:29 Pantoprazole (Protonix) 40 mg ACBREAKFAST ORAL 12/20/17 06:30 01/19/18 06:29 12/21/17 05:49 Polyethylene Glycol (Miralax) 17 gm HSPRN PRN ORAL Constipation 12/19/17 21:30 01/16/18 21:29 Promethazine HCl 25 mg/Sodium Chloride 56 ml @ 110 mls/hr Q6H PRN IV Refractory N/V 12/19/17 15:30 01/16/18 21:29 Temazepam (Restoril) 15 mg HSPRN PRN ORAL Insomnia 12/19/17 21:30 12/24/17 21:29 Kaushal Goodwin MD Dec 21, 2017 13:18
--- NOTE | 2017-12-22 14:25 | Discharge Summary ---
Discharge Summary Discharge Summary _ DATE OF ADMISSION: 12/17/2017 DATE OF DISCHARGE: 12/21/2017 CONSULTANTS: Dr. Kaushal Burton BRIEF HOSPITAL COURSE: Patient is a 62-year-old male, who presented with chief complaint of nausea and vomiting. History of present illness started a week prior to admission. Patient recently traveled to [place]. Patient began to experience nausea and vomiting. Patient was unable to tolerate liquids or solids. He has medical history significant for hypertension and hypercholesterolemia. On evaluation at ED, vital signs were stable. Blood work did not show any leukocytoses, hemoglobin and hematocrit were stable. He had hyponatremia, sodium of 126. BNP was elevated to 925. LFTs were elevated. He was given IV fluids. EKG showed normal sinus rhythm with left ventricular hypertrophy and anterolateral T-wave inversion. CT of the abdomen and pelvis showed no acute abnormalities. He was then admitted for evaluation of abdominal pain, hyponatremia, abnormal LFTs. He was initially placed on NPO. He was given proton pump inhibitors and bowel regimen. Abdominal ultrasound showed a nonobstructing left renal stone. There was no evidence of hydronephrosis. There was splenomegaly seen. He was having fever up to 102. Was cultured. He was started on ciprofloxacin 500 mg 3 times a day. Hepatitis panel was negative. Patient denies alcohol use. C. difficile was negative. Stool ova and parasites negative. Workup for infectious diarrhea had been negative. Blood culture did not isolate any growth. Autoimmune markers were checked. ESR was elevated to 95. DAREK screen negative. Small GAME AGENT antibody negative. F-actin IgG antibody pending. Patient had been afebrile. Patient was cleared for discharge home. Advised to follow-up with PCP. FINAL DIAGNOSES: Fever, unclear source, possible viral infectious diarrhea less likely rheumatologic, cancer Intractable diarrhea with abdominal pain Hyponatremia Abnormal liver function tests Hypertension Hyperlipidemia DISPOSITION: Patient was discharged home. DISCHARGE MEDICATIONS: Refer to Discharge Medication List. Continue ciprofloxacin 500 mg by mouth every 12 hours 4 more days. DISCHARGE INSTRUCTIONS: Follow up with primary doctor tomorrow. I have been assigned to dictate discharge summary on this account, and I was not involved in the patient's management. Farzana Aragon NP Dec 22, 2017 14:25
== END 2017-12-21 14:10 | disposition home or self-care (01) | DRG 251 ==
LOC: EMR 19:20 → 2E 21:36 → EDBEDREQ 21:57 → 4E 12-19 14:18
DX: R10.13 Epigastric pain (principal); E87.1 Hypo-osmolality and hyponatremia; I10 Essential (primary) hypertension; B97.89 Other viral agents as the cause of diseases classified elsewhere; R19.7 Diarrhea, unspecified; E78.5 Hyperlipidemia, unspecified; R74.0 Nonspecific elevation of levels of transaminase and lactic acid dehydrogenase [LDH]; R11.2 Nausea with vomiting, unspecified; N20.0 Calculus of kidney
CPT/HCPCS: 36415; 71045; 74177; 76700; 80053; 81003; 82150; 82248; 82270; 82378; 82550; 82553; 82607; 82728; 82746; 82784; 82787; 83540; 83550; 83605; 83690; 83735; 83880; 84100; 84439; 84443; 84484; 85007; 85025; 85044; 85060; 85610; 85651; 85730; 86039; 86140; 86235; 86703; 86705; 86709; 86803; 87040; 87086; 87181; 87324; 87340; 93005; 96360; 99285; J2405; J8499